=== PATIENT | male | born 1945 | race Caucasian/White ===

== ENCOUNTER 2020-09-17 08:28 | Outpatient (CLI) | payer MEDICARE, SELFPAY ==
--- NOTE | 2020-09-17 08:41 | XR_ITS ---
WS: [id number] Left knee, 3 views, 09/17/2020 Clinical Data: HX OF ACCIDENTAL FALL/L KNEE PAIN/ARTHRITIS Comparison: None. Findings: There is medial joint compartment narrowing. There are posterior patellar spurs. There is a synovial calcification in the posterior mid joint space. The soft tissues are unremarkable. There are no fractures or dislocations. XR/XR knee LT 3V* [id number] Impression: Medial joint compartment narrowing with posterior patellar spurring. Kellgren-Arash Classification: grade 2 (minimal): definite osteophytes and p ossible joint space narrowing
== END 2020-09-17 08:29 | disposition home or self-care (01) ==
PROVIDERS: PCP Nurse Practitioner Family; Visit Provider Nurse Practitioner Family
DX: Z91.81 History of falling (principal); M25.562 Pain in left knee; M19.90 Unspecified osteoarthritis, unspecified site
CPT/HCPCS: 73562

== ENCOUNTER 2020-10-05 09:10 | Outpatient (CLI) | payer MEDICARE, SELFPAY ==
--- NOTE | 2020-10-05 09:25 | MR_ITS ---
WS: [id number] MRI LEFT KNEE NONCONTRAST TECHNIQUE: Axial PD, coronal PD fat sat, coronal PD, sagittal PD, and sagittal PD fat-sat images obta ined. CLINICAL INFORMATION: HX OF ACCIDENTAL FALL, KNEE PAIN, LEFT COMPARISON: None. FINDINGS: Normal anatomic alignment. Hypertrophic patella. Moderate joint space narrowing medial joint compartm ent. Distal quadriceps and patella tendons are intact. Small suprapatellar effusion. Hypertrophic tabatha nges along the joint line. Mild soft tissue edema. Normal ACL. Normal PCL. Diffuse edema within the medial femoral condyle with a small osteochondral de fect. Osteochondral defect measures 4.5 mm. Associated edema with small nondisplaced fracture involvi ng the medial tibial plateau. No significant depression. Lateral meniscus is normal. Complex tear inv olving the posterior horn medial meniscus with edema. Moderate to advanced chondromalacia involving t he medial joint compartment. Advanced chondromalacia patella. Small amount of subchondral edema involving the medial patella facet . Edema within the medial knee compartment and popliteal fossa. Normal lateral collateral ligament. N ormal medial collateral ligament. MR/MR knee LT wo con* [id number] IMPRESSION: 1. Small suprapatellar effusion. 2. Normal ACL and PCL. 3. Diffuse edema involving the medial femoral condyle with osteochondral defec t measuring 4.5 mm. Advanced chondromalacia medial joint compartment. 4. Small amount of edema in the adjacent tibial plateau with a tiny nondisplac ed fracture. No significant depression. 5. Complex tear involving the posterior horn medial meniscus extending to the articular surface. 6. Advanced chondromalacia patella worse involving the medial patella facet. Outbridge grading: grade IV: full-thickness cartilage loss with underlying bone reactive changes
== END 2020-10-05 09:11 | disposition home or self-care (01) ==
PROVIDERS: PCP Clinical Nurse Specialist Adult Health; Visit Provider Nurse Practitioner Family
DX: Z91.81 History of falling (principal); M25.562 Pain in left knee; M25.462 Effusion, left knee; R60.0 Localized edema; S83.232A Complex tear of medial meniscus, current injury, left knee, initial encounter; X58.XXXA Exposure to other specified factors, initial encounter; M22.42 Chondromalacia patellae, left knee
CPT/HCPCS: 73721

== ENCOUNTER → 2020-11-04 10:46 | Outpatient (BNVA) | payer MEDICARE, SELFPAY | PROVIDERS: Referring Provider Clinical Nurse Specialist Adult Health; Visit Provider Specialist | DX: M17.12 Unilateral primary osteoarthritis, left knee (principal); M25.562 Pain in left knee | CPT/HCPCS: 73560; 73565 ==

== ENCOUNTER → 2020-11-17 09:54 | Outpatient (BNVA) | payer MEDICARE, SELFPAY | PROVIDERS: PCP Clinical Nurse Specialist Adult Health; Referring Provider Clinical Nurse Specialist Adult Health; Visit Provider Anesthesiology Pain Medicine | DX: G89.29 Other chronic pain (principal); M48.062 Spinal stenosis, lumbar region with neurogenic claudication; M47.816 Spondylosis without myelopathy or radiculopathy, lumbar region; M54.16 Radiculopathy, lumbar region; Z79.891 Long term (current) use of opiate analgesic; Z87.891 Personal history of nicotine dependence; M54.5 Low back pain; M51.36 Other intervertebral disc degeneration, lumbar region; M47.817 Spondylosis without myelopathy or radiculopathy, lumbosacral region; M48.061 Spinal stenosis, lumbar region without neurogenic claudication; M48.07 Spinal stenosis, lumbosacral region | CPT/HCPCS: 72120; 72148; 99204; 99205 ==

== ENCOUNTER 2020-11-17 14:17 | Outpatient (CLI) | payer MEDICARE, SELFPAY ==
--- NOTE | 2020-11-17 14:30 | XR_ITS ---
WS: [id number] LATERAL LUMBAR SPINE: 3 view. Lateral radiographs are performed in upright neutral, flexion and extension to the patient's toleranc e. HISTORY: M47.816 - Spondylosis without myelopathy or radiculopathy... COMPARISON: None available. Increase in the lumbar lordosis centered at the L4-5 level. Severe disc space narrowing at L4-5 and L 5-S1. L5 anterolisthesis by 9 mm. 2 mm retrolisthesis of L2 and L3. With flexion and extension there is no significant instability identified. Severe facet joint arthritis L4-5 and L5-S1. XR/XR lumbar spine f/e only [id number] IMPRESSION: 1. No lumbar spine instability. 2. Severe disc disease and facet arthritis at L4-5 and L5-S1. 3. Grade 1 anterolisthesis L5.
--- NOTE | 2020-11-17 14:30 | MR_ITS ---
WS: [id number] MRI LUMBAR SPINE NONCONTRAST HISTORY: Spinal stenosis. Back pain radiating into hips and legs for 7 years. COMPARISON: None available. TECHNIQUE: Sagittal and axial multisequence imaging is submitted. Component of stenosis visualized throughout the cervical spine from C3-4 to C6-7. Mild thoracolumbar scoliosis. Increase in lumbar lordosis centered in the lower lumbar vertebral bodies. Marked narrowing of the disc spaces, most significant at L4-5 and L5-S1. L5 anterolisthesis by 8 mm. No marrow edema or fracture. Conus terminates normally at L1-2 disc level. L1-L2: Mild ligamentum flavum hypertrophy. No significant stenosis. L2-L3: Mild annular disc bulging and osteophytic ridging with facet and ligamentum flavum arthritis. Mild bilateral foraminal narrowing. L3-L4: Marked osteophytic ridging and annular disc bulging with moderate ligamentum flavum hypertroph y and facet arthritis. Disc and osteophyte encroachment into the thecal sac. There is disc and osteop hyte contact in the lateral recesses upon the L4 nerve roots. Moderate central and bilateral foramina l stenosis. More severe subarticular and lateral recess stenosis. L4-L5: Diffuse marked osteophytic ridging and severe ligamentum flavum hypertrophy and facet arthriti s. Central disc protrusion. There is severe central stenosis due to combination of disc protrusion an d marked ligamentum flavum and facet arthritis. Severe central and bilateral lateral recess and subar ticular recess stenosis and moderate foraminal stenosis. L5-S1: Unroofing of the disc with severe bilateral ligamentum flavum hypertrophy. Severe central, lat eral recess and subarticular recess narrowing. Mild LEFT foraminal stenosis. Paravertebral soft tissues are negative. MR/MR lumbar spine wo con* [id number] IMPRESSION: 1. Moderate to severe stenoses as described above. Marked increase in the lumb ar lordosis at L4-5. 2. Grade 1 anterolisthesis of L5. 3. Severe central, bilateral lateral recess and subarticular recess stenosis a t L4-5 with moderate foraminal stenosis due to combination of factors as descri bed above. 4. Severe central, lateral recess and subarticular recess stenosis at L5-S1 as described above. 5. Moderate central and bilateral foraminal stenosis at L3-4 with severe bilat eral subarticular lateral recess stenosis.
== END 2020-11-17 14:18 | disposition home or self-care (01) ==
PROVIDERS: PCP Clinical Nurse Specialist Adult Health; Visit Provider Clinical Nurse Specialist Adult Health
DX: M54.5 Low back pain (principal); M47.816 Spondylosis without myelopathy or radiculopathy, lumbar region; M48.062 Spinal stenosis, lumbar region with neurogenic claudication; M51.36 Other intervertebral disc degeneration, lumbar region; M47.817 Spondylosis without myelopathy or radiculopathy, lumbosacral region; M48.061 Spinal stenosis, lumbar region without neurogenic claudication; M48.07 Spinal stenosis, lumbosacral region
CPT/HCPCS: 72120; 72148

== ENCOUNTER → 2020-11-27 13:53 | Outpatient (BNVA) | payer MEDICARE, SELFPAY | PROVIDERS: PCP Clinical Nurse Specialist Adult Health; Visit Provider Anesthesiology Pain Medicine | DX: M54.16 Radiculopathy, lumbar region (principal); Z79.891 Long term (current) use of opiate analgesic | CPT/HCPCS: 62323; J1040; J3490 ==

== ENCOUNTER → 2020-12-17 12:43 | Outpatient (BNVA) | payer MEDICARE, SELFPAY | PROVIDERS: PCP Clinical Nurse Specialist Adult Health; Visit Provider Anesthesiology Pain Medicine | DX: M47.816 Spondylosis without myelopathy or radiculopathy, lumbar region (principal); M54.16 Radiculopathy, lumbar region; M48.061 Spinal stenosis, lumbar region without neurogenic claudication; M79.604 Pain in right leg; M79.605 Pain in left leg; Z79.891 Long term (current) use of opiate analgesic; Z87.891 Personal history of nicotine dependence | CPT/HCPCS: 99214 ==

== ENCOUNTER → 2021-01-27 12:49 | Outpatient (BNVA) | payer MEDICARE, SELFPAY | PROVIDERS: PCP Clinical Nurse Specialist Adult Health; Visit Provider Anesthesiology Pain Medicine | DX: M47.816 Spondylosis without myelopathy or radiculopathy, lumbar region (principal); Z79.891 Long term (current) use of opiate analgesic | CPT/HCPCS: 64493; 64494; 64495; J3490 ==

== ENCOUNTER → 2021-02-15 08:44 | Outpatient (BNVA) | payer MEDICARE, SELFPAY | PROVIDERS: PCP Clinical Nurse Specialist Adult Health; Visit Provider Anesthesiology Pain Medicine | DX: M51.17 Intervertebral disc disorders with radiculopathy, lumbosacral region (principal); M47.816 Spondylosis without myelopathy or radiculopathy, lumbar region; M48.061 Spinal stenosis, lumbar region without neurogenic claudication; Z79.891 Long term (current) use of opiate analgesic; Z87.891 Personal history of nicotine dependence | CPT/HCPCS: 99214 ==

== ENCOUNTER → 2021-03-17 12:31 | Outpatient (BNVA) | payer MEDICARE, SELFPAY | PROVIDERS: PCP Clinical Nurse Specialist Adult Health; Visit Provider Anesthesiology Pain Medicine | DX: M47.816 Spondylosis without myelopathy or radiculopathy, lumbar region (principal); Z79.891 Long term (current) use of opiate analgesic | CPT/HCPCS: 64493; 64494; 64495; J3490 ==

== ENCOUNTER → 2021-03-31 09:46 | Outpatient (BNVA) | payer MEDICARE, SELFPAY | PROVIDERS: PCP Clinical Nurse Specialist Adult Health; Visit Provider Anesthesiology Pain Medicine | DX: M51.17 Intervertebral disc disorders with radiculopathy, lumbosacral region (principal); M48.061 Spinal stenosis, lumbar region without neurogenic claudication; M47.816 Spondylosis without myelopathy or radiculopathy, lumbar region | CPT/HCPCS: 99214 ==

== ENCOUNTER → 2021-04-22 13:01 | Outpatient (BNVA) | payer MEDICARE, SELFPAY | PROVIDERS: PCP Clinical Nurse Specialist Adult Health; Visit Provider Anesthesiology Pain Medicine | DX: M47.816 Spondylosis without myelopathy or radiculopathy, lumbar region (principal); M54.16 Radiculopathy, lumbar region; M48.061 Spinal stenosis, lumbar region without neurogenic claudication; Z79.891 Long term (current) use of opiate analgesic; Z87.891 Personal history of nicotine dependence | CPT/HCPCS: 99214 ==

== ENCOUNTER → 2021-05-19 12:55 | Outpatient (BNVA) | payer MEDICARE, SELFPAY | PROVIDERS: PCP Clinical Nurse Specialist Adult Health; Visit Provider Anesthesiology Pain Medicine | DX: Z87.891 Personal history of nicotine dependence (principal); M47.816 Spondylosis without myelopathy or radiculopathy, lumbar region | CPT/HCPCS: 64635; 64636; J1030 ==

== ENCOUNTER → 2021-06-02 13:22 | Outpatient (BNVA) | payer MEDICARE, SELFPAY | PROVIDERS: PCP Clinical Nurse Specialist Adult Health; Visit Provider Anesthesiology Pain Medicine | DX: Z87.891 Personal history of nicotine dependence (principal); M47.816 Spondylosis without myelopathy or radiculopathy, lumbar region | CPT/HCPCS: 64635; 64636; J1030 ==

== ENCOUNTER → 2021-06-16 10:51 | Outpatient (BNVA) | payer MEDICARE, SELFPAY | PROVIDERS: PCP Clinical Nurse Specialist Adult Health; Visit Provider Anesthesiology Pain Medicine | DX: M47.816 Spondylosis without myelopathy or radiculopathy, lumbar region (principal); M54.16 Radiculopathy, lumbar region; M48.061 Spinal stenosis, lumbar region without neurogenic claudication; M79.604 Pain in right leg; M79.605 Pain in left leg; Z87.891 Personal history of nicotine dependence | CPT/HCPCS: 99214 ==

== ENCOUNTER → 2021-08-03 09:50 | Outpatient (BNVA) | payer MEDICARE, SELFPAY | PROVIDERS: Visit Provider Clinical Nurse Specialist Adult Health | DX: Z00.00 Encounter for general adult medical examination without abnormal findings (principal); E78.5 Hyperlipidemia, unspecified; M48.061 Spinal stenosis, lumbar region without neurogenic claudication; I10 Essential (primary) hypertension; I25.10 Atherosclerotic heart disease of native coronary artery without angina pectoris | CPT/HCPCS: 80053; 80061; 85025 ==

== ENCOUNTER → 2021-09-10 10:02 | Outpatient (BNVA) | payer MEDICARE, SELFPAY | PROVIDERS: Visit Provider Clinical Nurse Specialist Adult Health | DX: Z00.00 Encounter for general adult medical examination without abnormal findings (principal); E78.5 Hyperlipidemia, unspecified; M48.061 Spinal stenosis, lumbar region without neurogenic claudication | CPT/HCPCS: 80053; 80061; 85025 ==

== ENCOUNTER 2021-09-15 16:25 | Observation (INO) | payer MEDICARE, SELFPAY ==
[2021-09-15 16:45] VITALS: BP 116/67; PULSE 88; RESP 20; O2SAT 94
--- NOTE | 2021-09-15 17:42 | XRR_ITS ---
PROCEDURE INFORMATION: Exam: XR Chest Exam date and time: 09/15/2021 5:54 PM Age: 76 years old Clinical indication: Other: Weakness; Prior surgery; Surgery date: 6+ months; Surgery type: Stints; Additional info: AMS TECHNIQUE: Imaging protocol: Radiologic exam of the chest. Views: 1 view. COMPARISON: No relevant prior studies available. FINDINGS: Lungs: Bibasilar scarring. No consolidation. Pleural spaces: No pleural effusion. No pneumothorax. Heart/Mediastinum: No cardiomegaly. Bones/joints: Visualized osseous structures are intact. XR/XR chest 1V portable [id number] IMPRESSION: No acute findings.
--- NOTE | 2021-09-15 17:42 | CTR_ITS ---
PROCEDURE INFORMATION: Exam: CT Head Without Contrast Exam date and time: 09/15/2021 6:22 PM Age: 76 years old Clinical indication: Altered mental status/memory loss; Confusion or disorientation; Patient HX: Confusion with general weakness; Additional info: AMS TECHNIQUE: Imaging protocol: Computed tomography of the head without contrast. Radiation optimization: All CT scans at this facility use at least one of these dose optimization techniques: automated exposure control; mA and/or kV adjustment per patient size (includes targeted exams where dose is matched to clinical indication); or iterative reconstruction. COMPARISON: No relevant prior studies available. RADIATION DOSE METRICS: Total DLP (mGy-cm): 1178.38 FINDINGS: Brain: No hemorrhage. No edema. Moderate diffuse cerebral atrophy. No significant white matter disease. No mass effect. Cerebral ventricles: No ventriculomegaly. Paranasal sinuses: Visualized sinuses are unremarkable. No fluid levels. Mastoid air cells: Visualized mastoid air cells are well aerated. Bones/joints: Unremarkable. No acute fracture. Soft tissues: Unremarkable. CT/CT head wo con* [id number] IMPRESSION: No acute intracranial abnormality.
--- NOTE | 2021-09-15 17:43 | ECG_ITS ---
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 Measurements Intervals [place] Rate: 84 P: DE: QRS: 40 QRSD: 84 T: 63 QT: 353 QTc: 420 Interpretive Statements SUPRAVENTRICULAR RHYTHM No previous ECG available for comparison Electronically Signed On 09-15-2021 18:00:49 CDT by Oliver Mason M.D. [id number]
--- NOTE | 2021-09-15 17:45 | W.ED.WEAKNES ---
HPI - Weakness General: Chief complaint: Weakness Stated complaint: WEAKNESS Time Seen by Provider: 09/15/21 17:16 Source: patient and family Mode of arrival: ambulatory Limitations: no limitations History of Present Illness: Patient convinced spouse to come to the emergency department today because she was concerned about him. He apparently had a fall earlier today. She did not witness the fall but stated that he was attempting to ambulate and she was in the other room and heard a ruckus and came in and found him on the floor. She states he seems to be a little bit more confused than usual. He has generally oriented but seems to ask odd questions of her from time to time. She is not aware of any recent illness. He is not any fevers or chills, nausea, vomiting, diarrhea. She has had a summer cold recent recently. They are have not knowingly been exposed to COVID-19 but neither is immunized. He has a history of spinal stenosis and has had stents placed for coronary artery occlusion but denies any chest pain weakness numbness loss of bowel or bladder control etc. He has chronic lower extremity paresthesias as well. No other contributing findings on his history at this time. He cannot tell me exactly why he fell but denied any associated palpitations syncope etc. MD Complaint: generalized weakness Associated symptoms: Reports no associated symptoms; Denies chest pain, chills, confusion, dysuria, easy bruising, fever(s), headache(s), nausea, syncope or vomiting Review of Systems Const: Denies: fever(s), chills or body aches Eyes: Denies: change in vision ENMT: Denies: odynophagia, change in hearing or nasal congestion Card: Denies: chest pain, palpitations, irregular heart rhythm, lightheadedness or syncope Resp: Denies: dyspnea, productive cough or non-productive cough GI: Denies: abdominal pain, nausea, vomiting or diarrhea : Denies: flank pain, difficulty urinating, dysuria or urinary frequency Musc: Reports: back pain (Chronic low back); Denies: neck pain, extremity pain or extremity swelling Skin/Breast: Denies: rash or erythema Neuro: Denies: headache(s), weakness in extremities, dizziness, vertigo, confusion or Slurred speech present Endo: Denies: polyuria or polydipsia Micheal/Lymph: Denies: easy bruising or easy bleeding PFSH ED PFSH: Medical History (Updated 09/15/21 @ 21:04 by Osmar Up DO) Coronary artery disease Hyperlipidemia Hypertension Spinal stenosis Surgical History (Updated 09/15/21 @ 21:01 by Marvel Adames MD) S/P coronary artery stent placement Family History Other Hypertension Denies family history of CAD (coronary artery disease) Anesthesia complication Bleeding disorder Social History Smoking and tobacco status: former smoker Second hand smoke exposure: No Smoking risk assessment/counseling performed?: No Alcohol intake: never History of recent travel: No Physical Exam Narrative: EXAM NARRATIVE: Patient makes good eye contact. He generally answers questions in a goal-directed fashion. Occasionally he is unsure of his answers. He is cooperative and appears to be in no acute distress. Const: COMMON NORMALS: no acute distress, healthy appearing and alert GENERAL APPEARANCE: cooperative and comfortable NUTRITIONAL APPEARANCE: overweight ORIENTATION/CONSCIOUSNESS: Yes awake, Yes oriented to person and Yes oriented to place HENMT: COMMON NORMALS: normocephalic, atraumatic, Normal nasal mucous membranes and turbinates present and moist oral mucous membranes HEAD & SCALP: normal to inspection, normocephalic and atraumatic FACE & SINUS: normal facial exam NOSE: Normal nasal mucous membranes and turbinates present Eye: COMMON NORMALS: Equal, round and reactive pupils present, EOMs intact bilaterally and conjunctivae normal CONJUNCTIVA: Yes conjunctivae normal PUPIL: Yes Equal, round and reactive pupils present Neck/C-Spine: COMMON NORMALS: full ROM, supple and no JVD CERVICAL SPINE: Yes cervical ROM normal, No Cervical spine tenderness and No step off deformity Chest: COMMONS NORMALS: normal inspection of the chest and normal palpation of entire chest wall Resp: COMMON NORMALS: normal respiratory effort, No retractions, No use of accessory muscles and clear to auscultation bilaterally EFFORT & INSPECTION: Yes able to speak in complete sentences AUSCULTATION: clear to auscultation bilaterally Cardio: COMMON NORMALS: no JVD, regular rate, regular rhythm, No murmurs present (Cardio) and Peripheral pulses 2+ throughout RATE: regular rate RHYTHM: regular rhythm PERIPHERAL PULSES: Peripheral pulses 2+ throughout GI: COMMON NORMALS: Normal to inspection, nondistended, normoactive bowel sounds present, Soft to palpation, non-tender, no masses and no bruits INSPECTION: Yes central obesity PALPATION: Yes Soft to palpation : COMMON NORMALS: Yes no CVA tenderness BLADDER/KIDNEY EXAM: Yes no CVA tenderness Back/Pelvis: COMMON NORMALS: no CVA tenderness, thoracic and lumbar spine normal to inspection, no thoracic nor lumbar tenderness, thoraco-lumbar ROM normal and straight leg raise negative bilaterally Extremity: COMMON NORMALS: normal to inspection, full ROM, capillary refill normal, no joint enlargement, no calf tenderness and no pedal edema Neuro: COMMON NORMALS: moves all extremities and no sensory deficits noted SENSORIUM/ORIENTATION: Yes alert, Yes oriented to person and Yes oriented to place CRANIAL NERVES: Yes CN normal except as noted Psych: COMMON NORMALS: mental status grossly normal and Normal thought process present THOUGHT PROCESS: Normal thought process present Skin: COMMON NORMALS: no rashes or lesions noted, no wounds and turgor normal GENERAL SKIN EXAM: no rashes or lesions noted and turgor normal Course Reevaluation(s): Reevaluation #1: Patient remained stable. No new findings on reevaluation. I discussed current studies, the results and implications with patient and spouse. Recommend observation to repeat serial troponins and also follow response to antibiotic treatment. Time: 21:01 Consultations: Consultation #1: Consulted the manager laundry who agreed to place the patient in observation status. Time: 21:03 Vital Signs: Vital signs: Vital Signs Temperature 98.3 F 09/15/21 20:00 Pulse Rate 84 09/15/21 20:00 Respiratory Rate 20 H 09/15/21 16:45 Blood Pressure 123/73 09/15/21 20:00 Pulse Oximetry 95 09/15/21 20:00 MDM - Weakness Medical Decision Making FallPatient was transported to the emergency department because of concerns about some mild confusion, general weakness and a nonsyncopal earlier today. 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 His work-up in the emergency department revealed evidence of UTI which is a likely contributor to some of his symptoms however he also has an very minimal elevation in his high-sensitivity troponin on 2 occasions. Nonacute EKGs mitigate against ACS at this time but known coronary artery disease with LAD stent I think it is reasonable for us to placement observation for repeat troponins and EKGs and follow his response to therapy. Hospitalist was in agreement. Lab Data I reviewed the patient's lab results. : 09/15/21 18:08 09/15/21 18:08 Radiology Impressions Chest X-Ray 09/15/21 17:42 IMPRESSION: No acute findings. Head CT 09/15/21 17:42 IMPRESSION: No acute intracranial abnormality. Laboratory Results WBC 6.4 10^3/uL (4.0-10.0) 09/15/21 18:08 RBC 3.90 10^6/uL (4.1-5.3) L 09/15/21 18:08 Hgb 12.4 g/dL (11.7-16.6) 09/15/21 18:08 Hct 39.6 % (42.0-52.0) L 09/15/21 18:08 MCV 101.5 fl (80-94) H 09/15/21 18:08 MCH 31.8 pg (28.0-34.0) 09/15/21 18:08 MCHC 31.3 g/dL (30.0-36.0) 09/15/21 18:08 RDW 13.2 % (12.1-15.1) 09/15/21 18:08 Plt Count 176 10^3/cmm (130-400) 09/15/21 18:08 MPV 10.0 fL (7.4-10.4) 09/15/21 18:08 Neut % (Auto) 80.9 % 09/15/21 18:08 Lymph % (Auto) 7.6 % 09/15/21 18:08 Cole % (Auto) 10.6 % 09/15/21 18:08 Eos % (Auto) 0.3 % 09/15/21 18:08 Baso % (Auto) 0.3 % 09/15/21 18:08 Neut # (Auto) 5.18 10^3/uL (1.8-7.7) 09/15/21 18:08 Lymph # (Auto) 0.5 10^3/uL (0.8-4.8) L 09/15/21 18:08 Cole # (Auto) 0.7 10^3/uL (0.2-0.9) 09/15/21 18:08 Eos # (Auto) 0.0 10^3/uL (0.0-0.8) 09/15/21 18:08 Baso # (Auto) 0.0 10^3/uL (0.0-0.1) 09/15/21 18:08 Nucleated RBC % (auto) 0 % 09/15/21 18:08 Nucleated RBCs # 0.0 /100WBC 09/15/21 18:08 Sodium 138 mmol/L (136-145) 09/15/21 18:08 Potassium 4.0 mmol/L (3.5-5.1) 09/15/21 18:08 Chloride 105 mmol/L (98-107) 09/15/21 18:08 Carbon Dioxide 23 mmol/L (22-29) 09/15/21 18:08 Anion Gap 14.0 (5-19) 09/15/21 18:08 BUN 14 mg/dL (8-23) 09/15/21 18:08 Creatinine 0.6 mg/dL (0.7-1.2) L 09/15/21 18:08 GFR Calculation Not Reportable 09/15/21 18:08 Glucose 111 mg/dL (65-115) 09/15/21 18:08 Calculated Osmolality 287 mOsm/kg (285-295) 09/15/21 18:08 Calcium 9.3 mg/dL (8.5-10.5) 09/15/21 18:08 Total Bilirubin 0.2 mg/dL (0.15-1.2) 09/15/21 18:08 AST 38 U/L (0-40) 09/15/21 18:08 ALT 35 U/L (0-41) 09/15/21 18:08 Alkaline Phosphatase 73 IU/L (40-130) 09/15/21 18:08 Troponin T Gen 5 ng/L 23 ng/L (0-15) H 09/15/21 18:08 Troponin T 120 Minute 27.12 ng/L (0-15) H 09/15/21 19:15 Delta Troponin T 4.12 ABS# (0-10) 09/15/21 19:15 Total Protein 6.3 g/dL (6.6-8.7) L 09/15/21 18:08 Albumin 3.9 g/dL (3.5-5.2) 09/15/21 18:08 Globulin 2.4 g/dL (1.3-4.6) 09/15/21 18:08 Urine Color Yellow (Yellow) 09/15/21 18:40 Urine Appearance Cloudy (CLEAR) 09/15/21 18:40 Urine pH 5 (5-7) 09/15/21 18:40 Ur Specific [place] 1.025 (1.005-1.030) 09/15/21 18:40 Urine Protein Neg (Negative) 09/15/21 18:40 Urine Glucose (UA) Norm (Normal) 09/15/21 18:40 Urine Ketones Negative (Negative) 09/15/21 18:40 Urine Blood 3+ (Negative) H 09/15/21 18:40 Urine Nitrate Positive (Negative) H 09/15/21 18:40 Urine Bilirubin Neg (Negative) 09/15/21 18:40 Urine Urobilinogen Norm mg/dL (Negative) 09/15/21 18:40 Ur Leukocyte Esterase 2+ (Negative) H 09/15/21 18:40 Urine RBC 0-4 /hpf (0-2) H 09/15/21 18:40 Urine WBC Too numerous to cnt /hpf (0-5) H 09/15/21 18:40 Ur Squamous Epith Cells 0-4 /hpf (0-5) H 09/15/21 18:40 Amorphous Sediment Not Reportable 09/15/21 18:40 Urine Bacteria 3+ /hpf (NONE) H 09/15/21 18:40 EKG Data EKG 1: I personally reviewed and interpreted this EKG as follows: EKG interpretation time: 18:01 Interpretation: EKG shows a ventricular rate of 84 bpm. P waves are somewhat undiscernible on this tracing. He has a QRS duration of 84 ms and a normal QTc interval. No acute ST-T wave changes noted at this time. No prior tracings available for comparison EKG 2: I personally reviewed and interpreted this EKG as follows: EKG interpretation time: 19:32 Interpretation: Second EKG this visit reveals a ventricular rate of 75 bpm. Again the atrial focus is not clear due to some baseline irritability however he does appear to have stable RR intervals. Normal QRS duration QTC is normal. No acute ST-T wave changes and unchanged from first tracing this visit. Discharge Plan Discharge Patient Disposition: Placed in Observation Clinical Impression: Urinary tract infection, Coronary artery disease, Elevated troponin Condition: Stable Prescriptions: No Action baclofen 5 mg tablet 5 mg PO BID 0RF meloxicam 15 mg tablet 15 mg PO DAILY 0RF atorvastatin 40 mg tablet 40 mg PO DAILY 0RF tamsulosin 0.4 mg capsule 0.4 mg PO DAILY 0RF gabapentin 300 mg capsule 300 mg PO TID Qty: 90 2RF Coding Level of Care Code ED Business Objects Report Developer for Chg Fwd Exam Comprehensive
[2021-09-15] MEDS: sodium chloride 0.9% 500 ML IV (18:11)
[2021-09-15 18:17] LABS: Basophils % 0.3 %; Eosinophils % 0.3 %; Hematocrit 39.6 % (42.0-52.0); Hemoglobin 12.4 g/dL (11.7-16.6); Lymphocytes # 0.5 10^3/uL (0.8-4.8); Lymphocytes % 7.6 %; Mean Corpuscular HGB Conc 31.3 g/dL (30.0-36.0); Mean Corpuscular Hemoglobin 31.8 pg (28.0-34.0); Mean Corpuscular Volume 101.5 fl (80-94); Monocytes # 0.7 10^3/uL (0.2-0.9); Monocytes % 10.6 %; Neutrophils # 5.18 10^3/uL (1.8-7.7); Neutrophils % 80.9 %; Nucleated Red Blood Cells % 0 %; Platelet Count 176 10^3/cmm (130-400); Red Cell Distribution Width 13.2 % (12.1-15.1); White Blood Count 6.4 10^3/uL (4.0-10.0)
[2021-09-15 18:47] LABS: Troponin T (5th) Once 23 ng/L (0-15)
[2021-09-15 18:50] LABS: Alanine Aminotransferase 35 U/L (0-41); Albumin Level 3.9 g/dL (3.5-5.2); Alkaline Phosphatase 73 IU/L (40-130); Aspartate Amino Transferase 38 U/L (0-40); Blood Urea Nitrogen 14 mg/dL (8-23); Calcium 9.3 mg/dL (8.5-10.5); Carbon Dioxide 23 mmol/L (22-29); Chloride 105 mmol/L (98-107); Globulin 2.4 g/dL (1.3-4.6); Glucose 111 mg/dL (65-115); Osmolality Calculated 287 mOsm/kg (285-295); Sodium 138 mmol/L (136-145); Total Bilirubin 0.2 mg/dL (0.15-1.2); Total Protein 6.3 g/dL (6.6-8.7)
[2021-09-15 19:18] LABS: Specific Gravity, Urine 1.025 (1.005-1.030); Urine Appearance Cloudy (CLEAR); Urine Color Yellow (Yellow); pH Urine 5 (5-7)
[2021-09-15 19:19] LABS: Add Urine Microscopic? YES; Bilirubin Urine Neg (Negative); Blood Urine 3+ (Negative); Glucose Urine UA Norm (Normal); Ketones Urine Negative (Negative); Leukocyte Esterase Urine 2+ (Negative); Nitrate Urine Positive (Negative); Protein Urine Neg (Negative); Urobilinogen Urine Norm (Negative)
[2021-09-15 19:20] LABS: Add Urine Culture? Yes; Bacteria Urine 3+ /hpf; RBC Urine 0-4 /hpf (0-2); Squamous Epithelial Cell Urine 0-4 /hpf (0-5); WBC Urine TOO NUMEROUS TO CNT /hpf (0-5)
[2021-09-15] MEDS: cefTRIAXone 2,000 MG in sodium chloride 0.9% (plus) 50 ML 100 MG IV (19:42)
[2021-09-15 20:00] VITALS: BP 123/73; PULSE 84; TEMP 36.8; O2SAT 95
[2021-09-15 20:46] LABS: Troponin 5 2HR 27.12 ng/L (0-15)
[2021-09-15 20:49] LABS: Troponin 5 2HR Delta 4.12 ABS# (0-10)
--- NOTE | 2021-09-15 21:00 | ECG_ITS ---
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 Measurements Intervals [place] Rate: 75 P: -57 [place]: 169 QRS: 39 QRSD: 87 T: 57 QT: 354 QTc: 397 Interpretive Statements ECTOPIC ATRIAL RHYTHM Compared to ECG 09/15/2021 17:59:24 Ectopic atrial rhythm now present Supraventricular rhythm no longer present Electronically Signed On 09-15-2021 19:42:01 CDT by Oliver Mason M.D. [id number]
--- NOTE | 2021-09-15 21:43 | PM.HP ---
Providers/Chief Complaint Admitting Physician: Marvel Adames Chief Complaint: WEAKNESS History of Present Illness Pleasant 76-year-old gentleman with history of spinal stenosis, CAD, status post coronary stenting 2 years ago, on aspirin 81 mg, was brought in for evaluation by his today due to having been more generally weak, more unsteady on his feet, today fell down or slumped down trying to walk with a walker ending up on the floor, and has been acting confused. His reports that he overall has been having some progressive memory difficulties recently, but today has been much more confused than usual. In ER he is noted to be afebrile, without leukocytosis, with UA with numerous WBC, 0-4 RBC, 0.4 squamous pleural cells, nitrate positive. He received Rocephin. Due to the systemic effects after urinary tract infection observation was requested in the hospital. He denies nycturia, or weak stream, but does state that if he gets to urinate he has to make it to the restroom) or otherwise he may not make it in time. Reported with regards to spinal stenosis he had had previously ablation performed. He reports that he has not been having any physical therapy due to having switched insurance still not sure whether it was something that could be affordable to them. Review of Systems Const: Denies: fever(s), chills, body aches or malaise Eyes: Denies: change in vision, eye discomfort or eye redness ENMT: Denies: throat pain, oral sores or ear or mastoid pain Card: Denies: chest pain, edema, pre-syncope or dyspnea on exertion Resp: Denies: dyspnea, productive cough, change in phlegm color or hemoptysis GI: Denies: abdominal pain, nausea, vomiting, diarrhea, constipation, hematochezia or melena : Denies: flank pain, difficulty urinating, urinary frequency or hematuria Musc: Reports: back pain; Denies: joint swelling or joint redness Skin/Breast: Denies: rash or new lesions Neuro: Reports: confusion and other (fall); Denies: headache(s), numbness in extremities, weakness in extremities, dizziness or seizure-like activity Endo: Denies: polyuria or polydipsia Micheal/Lymph: Denies: easy bleeding or tender lymph nodes All/Imm: Denies: urticaria or tongue swelling Medications/Allergies Home Medications Medication Instructions Recorded Confirmed Last Taken Type atorvastatin 40 mg tablet 40 mg PO DAILY 10/12/20 06/16/21 Unknown History meloxicam 15 mg tablet 15 mg PO DAILY 10/12/20 06/16/21 Unknown History tamsulosin 0.4 mg capsule 0.4 mg PO DAILY 10/12/20 06/16/21 Unknown History baclofen 5 mg tablet 5 mg PO BID 11/17/20 06/16/21 Unknown History gabapentin 300 mg capsule 300 mg PO TID #90 cap 06/16/21 06/16/21 Unknown Rx Allergies Allergy/AdvReac Type Severity Reaction Status Date / Time acetaminophen [From Percocet] Allergy Unknown Unknown Unverified 09/15/21 22:05 oxycodone [From Percocet] Allergy Unknown Unknown Unverified 09/15/21 22:05 PFSH Acute PFSH: Medical History (Updated 09/15/21 @ 22:01 by Marvel Adames MD) Coronary artery disease Hyperlipidemia Hypertension Spinal stenosis Surgical History History of ankle surgery Hx of cholecystectomy S/P coronary artery stent placement Family History Other Hypertension Denies family history of CAD (coronary artery disease) Anesthesia complication Bleeding disorder Social History Smoking and tobacco status: former smoker Second hand smoke exposure: No Smoking risk assessment/counseling performed?: No Alcohol intake: never Household members: spouse Marital status: History of recent travel: No Vitals/I&O/Wt Last Vital Signs Temp 98.3 F 09/15/21 20:00 Pulse 84 09/15/21 20:00 Resp 20 H 09/15/21 16:45 BP 123/73 09/15/21 20:00 Pulse Ox 95 09/15/21 20:00 09/15/21 09/15/21 09/15/21 06:59 14:59 22:59 Intake Total 50 / 50 Balance 50 / 50 Physical Exam Const: COMMON NORMALS: alert GENERAL APPEARANCE: cooperative ORIENTATION/CONSCIOUSNESS: Yes awake OTHER: Pleasant. Conversant. Forgetful, frequently looking to to provide answers and history and to complete his thoughts. HENMT: COMMON NORMALS: normocephalic, EAC's normal, Normal external nose present and moist oral mucous membranes HEAD & SCALP: normocephalic NOSE: Normal external nose present EXTERNAL AUDITORY CANAL: EAC's normal Neck/C-Spine: COMMON NORMALS: no meningeal signs Chest: CHEST: Yes Symmetrical chest wall rise Resp: COMMON NORMALS: clear to auscultation bilaterally AUSCULTATION: clear to auscultation bilaterally Cardio: COMMON NORMALS: regular rate, regular rhythm and No murmurs present (Cardio) RATE: regular rate RHYTHM: regular rhythm GI: COMMON NORMALS: Normal to inspection, nondistended, normoactive bowel sounds present, Soft to palpation and non-tender PALPATION: Yes Soft to palpation Extremity: COMMON NORMALS: no pedal edema Neuro: COMMON NORMALS: moves all extremities SENSORIUM/ORIENTATION: Yes alert MENINGEAL SIGNS: Yes no meningeal signs Psych: COMMON NORMALS: mental status grossly normal Skin: COMMON NORMALS: no wounds RASHES: no rashes Data : 09/15/21 18:08 09/15/21 18:08 A&P Assessment and plan (1) Urinary tract infection: Continue Rocephin. He reports that he has history of kidney stones, will assess kidney ultrasound to assess for any hydronephrosis. Does not have signs of sepsis at this time, but UTI complicated with acute encephalopathy, generalized weakness, fall. He otherwise denies symptoms of prostatism, although does appear may have some neurogenic bladder symptoms possibly from his spinal stenosis. Follow urine culture. Status: Acute (2) Acute encephalopathy: Acute metabolic encephalopathy with urinary tract infection. As above. Reassess mental status tomorrow. Consider adjusting baclofen to as needed dosing at discharge. Hold for now. Status: Acute (3) Fall: Has been having difficulty walking secondary to spinal stenosis, but now more generally weak and had a fall/slumped to the floor today trying to walk with a walker. Reports has had ablation for spinal stenosis previously, but the also she has not had any physical therapy due to some changes in insurance. We will request PT, OT assessment. Case management consultation additionally for consideration of post discharge therapy. Check orthostatics. Treat UTI. Status: Acute (4) Decline in verbal memory: Currently acute encephalopathy but a superimposed on more protracted decline in his memory as per both him and his . Discussed consideration, especially if impairment persists after recovery from UTI, with neurology for additional neurocognitive assessment. Check B12, folic acid. TSH. OT, PT Status: Acute (5) Spinal stenosis: PT assessment. Continue conservative management this time. Follow-up with primary provider. Would benefit from PT postdischarge as well. Discussed also with him and his regarding caution with NSAIDs, especially meloxicam, with risks of kidney injury, but also [place], CVA, and other adverse effects. He uses both Nexium and Voltaren. As per discussion he feels he can try to get by with other medications, including Tylenol, discussed other conservative measures including topicals 1/cold packs, etc. Status: Acute (6) Elevated troponin: Discussed with him also mild abnormality of troponin, 23-27. He has not had any chest pain or pressure. Has history of coronary artery disease with stenting 2 years ago had previously been taken off Plavix. Does continue taking 81 mg aspirin. Continue. Complete troponin EKG trend. Monitor for any changes in symptoms and depending on findings consider need for additional work-up/referral. Continue statin. Consider addition of beta-stoney. Status: Acute Plan HTN HLD Attestations Medical Necessity Statement*: Place in observation for additional assessment of management of urinary tract infection complicated with acute encephalopathy, generalized weakness, fall. 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
[2021-09-15 22:00] VITALS: PULSE 73
[2021-09-15 22:34] VITALS: BP 131/68; PULSE 83; RESP 17; TEMP 37.9; O2SAT 92
--- NOTE | 2021-09-15 22:34 | US_ITS ---
WS: [id number] RENAL ULTRASOUND URINARY BLADDER ULTRASOUND HISTORY: UTI, Hx kidney stones, assess for any hydro COMPARISON: None available. TECHNIQUE: 2-D and color Doppler imaging of the kidney submitted. Right kidney: 11.6 cm x 5.9 cm x 7.2 cm. Normal size kidney with no hydronephrosis. No cortical thinning or solid mass. Nonobstructing 7 mm ca lcification lower pole. Parapelvic cyst measures 14 mm in the upper pole. Left kidney: 10.2 cm x 7.9 cm x 5.5 cm. Normal size kidney. There are small parapelvic cyst in the mid kidney with a maximum diameter of 12 m m. Aorta: Normal. Urinary Bladder: Urinary bladder is only moderately distended. Prevoid volume of 89 mL. No significan t change after voiding. Post void volume of 90 mL. US/US renal BI with PV bladder IMPRESSION: 1. No renal obstruction or hydronephrosis. 2. Urinary bladder is only minimally distended. Post void residual is similar to the prevoid volume.
--- NOTE | 2021-09-15 22:49 | PC.NURSE ---
i reported high temp 100.3 to nurse
[2021-09-16] VITALS (8 sets, daily range): BP systolic 103–130; BP diastolic 49–75; PULSE 64–74; RESP 16–18; TEMP 36.7–37.8; O2SAT 90–96
--- NOTE | 2021-09-16 01:00 | ECG_ITS ---
[facility] Test Date: 2021-09-16 Pat Name: Raman Tobar Department: Room: 279 Gender: Male Vp Respiratory: : 1945 Requested By: Osmar Up Order Number: [id number] Sindy MD: Helga Bae M.D. Measurements Intervals [place] Rate: 73 P: 0 PA: 211 QRS: 17 QRSD: 100 T: 51 QT: 356 QTc: 394 Interpretive Statements SINUS RHYTHM WITH SINUS ARRHYTHMIA WITH FIRST DEGREE AV BLOCK Compared to ECG 09/15/2021 19:30:50 First degree AV block now present Ectopic atrial rhythm no longer present Electronically Signed On 09-16-2021 19:26:32 CDT by Helga Bae M.D. [id number]
--- NOTE | 2021-09-16 01:33 | PC.NURSE ---
i reported high temp 100.0 to nurse
[2021-09-16 01:37] LABS: Basophils % 0.3 %; Eosinophils % 0.2 %; Hemoglobin 12.1 g/dL (11.7-16.6); Lymphocytes % 15.5 %; Mean Corpuscular HGB Conc 32.7 g/dL (30.0-36.0); Mean Corpuscular Hemoglobin 31.6 pg (28.0-34.0); Mean Corpuscular Volume 96.6 fl (80-94); Mean Platelet Volume 9.8 fL (7.4-10.4); Monocytes % 15.3 %; Neutrophils # 4.33 10^3/uL (1.8-7.7); Neutrophils % 68.2 %; Nucleated Red Blood Cells % 0 %; Platelet Count 165 10^3/cmm (130-400); Red Blood Count 3.83 10^6/uL (4.1-5.3); Red Cell Distribution Width 13.2 % (12.1-15.1); White Blood Count 6.3 10^3/uL (4.0-10.0)
[2021-09-16 01:53] LABS: Troponin 5 6HR 28.68 ng/L (0-15)
[2021-09-16 02:05] LABS: Troponin 5 6HR Delta 5.68 ng/L (0-12)
[2021-09-16 02:10] LABS: Anion Gap 14.9 (5-19); Blood Urea Nitrogen 14 mg/dL (8-23); Carbon Dioxide 24 mmol/L (22-29); Chloride 100 mmol/L (98-107); Glucose 102 mg/dL (65-115); Osmolality Calculated 281 mOsm/kg (285-295); Potassium 3.9 mmol/L (3.5-5.1); Sodium 135 mmol/L (136-145); Thyroid Stimulating Hormone 0.86 uIU/mL (0.27-4.20); Vitamin B12 428 pg/mL (232-1245)
[2021-09-16 03:56] LABS: Folate Level > 20.0 ng/mL (4.5-32.2)
[2021-09-16] MEDS: aspirin 81 mg EC Tablet PO (08:49)
[2021-09-16] MEDS: gabapentin 300 mg Capsule PO ×3 (08:49→20:31)
[2021-09-16] MEDS: tamsulosin 0.4 mg Capsule PO (08:49)
[2021-09-16] MEDS: atorvastatin 40 mg Tablet PO (08:49)
--- NOTE | 2021-09-16 10:21 | P.PN_ITS ---
Subjective Subjective: Patient was seen and examined this morning, did well with physical therapy,slightly forgetful.Urine culture is growing GNR, Pending identification. Medications: Medication Review Details: Generic Name Dose Route Start Last Admin Trade Name Mile PRN Reason Stop Dose Admin Aspirin 81 mg 09/16/21 09:00 09/16/21 08:49 Aspirin 81 Mg Ec Tablet PO 81 mg DAILY SANTOS Administration Atorvastatin Calci um 40 mg 09/16/21 09:00 09/16/21 08:49 Atorvastatin 40 Mg Tablet PO 40 mg DAILY SANTOS Administration Gabapentin 300 mg 09/16/21 09:00 09/16/21 08:49 Gabapentin 300 M g Capsule PO 300 mg TID SANTOS Administration Tamsulosin HCl 0.4 mg 09/16/21 09:00 09/16/21 08:49 Tamsulosin 0.4 M g Capsule PO 0.4 mg DAILY SANTOS Administration Vitals/I&O/Wt Last Vital Signs Temp 98.1 F 09/16/21 08:00 Pulse 67 09/16/21 08:00 Resp 18 09/16/21 08:00 BP 116/62 09/16/21 08:00 Pulse Ox 90 09/16/21 08:00 09/15/21 09/16/21 09/16/21 22:59 06:59 14:59 Intake Total 50 / 50 Output Total 100 / 100 Balance 50 / 50 -100 / -50 Physical Exam Narrative: Alert,awake,not in acute distress. HENMT: COMMON NORMALS: normocephalic and atraumatic HEAD & SCALP: normocephalic and atraumatic Chest: CHEST: Yes Symmetrical chest wall rise Resp: COMMON NORMALS: clear to auscultation bilaterally EFFORT & INSPECTION: Yes symmetric chest movement AUSCULTATION: clear to auscultation bilaterally Cardio: COMMON NORMALS: regular rate, regular rhythm, S1 normal heart sound present, S2 normal heart sound present, No gallops present (Cardio), No murmurs present (Cardio), No rub (Cardio) and Peripheral pulses 2+ throughout RATE: regular rate RHYTHM: regular rhythm HEART SOUNDS: S1 normal heart sound present and S2 normal heart sound present PERIPHERAL PULSES: Peripheral pulses 2+ throughout GI: COMMON NORMALS: Normal to inspection, nondistended, normoactive bowel sounds present, Soft to palpation, non-tender, No hepatosplenomegaly present and no masses AUSCULTATION: Yes normoactive bowel sounds PALPATION: Yes Soft to palpation and Yes No hepatosplenomegaly present RECTAL EXAM: Yes deferred Extremity: COMMON NORMALS: no clubbing, cyanosis or edema and no pedal edema Data : 09/16/21 01:29 09/16/21 01:29 Micro: Microbiology 09/15/21 18:40 Urine Culture - Preliminary Urine,Clean Catch Gram Negative Rods A&P Assessment and plan (1) Urinary tract infection: Continue Rocephin. He reports that he has history of kidney stones, will assess kidney ultrasound to assess for any hydronephrosis. Does not have signs of sepsis at this time, but UTI complicated with acute encephalopathy, generalized weakness, fall. He otherwise denies symptoms of prostatism, although does appear may have some neurogenic bladder symptoms possibly from his spinal stenosis. Follow urine culture. Status: Acute (2) Acute encephalopathy: Acute metabolic encephalopathy with urinary tract infection. As above. Reassess mental status tomorrow. Consider adjusting baclofen to as needed dosing at discharge. Hold for now. Status: Acute (3) Fall: Has been having difficulty walking secondary to spinal stenosis, but now more generally weak and had a fall/slumped to the floor today trying to walk with a walker. Reports has had ablation for spinal stenosis previously, but the also she has not had any physical therapy due to some changes in insurance. We will request PT, OT assessment. Case management consultation additionally for consideration of post discharge therapy. Check orthostatics. Treat UTI. Status: Acute (4) Decline in verbal memory: Currently acute encephalopathy but a superimposed on more protracted decline in his memory as per both him and his . Discussed consideration, especially if impairment persists after recovery from UTI, with neurology for additional neurocognitive assessment. Check B12, folic acid. TSH. OT, PT Status: Acute (5) Spinal stenosis: PT assessment. Continue conservative management this time. Follow-up with primary provider. Would benefit from PT postdischarge as well. Discussed also with him and his regarding caution with NSAIDs, especially meloxicam, with risks of kidney injury, but also [place], CVA, and other adverse effects. He uses both Nexium and Voltaren. As per discussion he feels he can try to get by with other medications, including Tylenol, discussed other conservative measures including topicals 1/cold packs, etc. Status: Acute (6) Elevated troponin: Discussed with him also mild abnormality of troponin, 23-27. He has not had any chest pain or pressure. Has history of coronary artery disease with stenting 2 years ago had previously been taken off Plavix. Does continue taking 81 mg aspirin. Continue. Complete troponin EKG trend. Monitor for any changes in symptoms and depending on findings consider need for additional work-up/referral. Continue statin. Consider addition of beta-stoney. Status: Acute Plan 76 y o m with PMH of the HTN , CAD S/P PCI 2 Years , spinal stenosis, was admitted with c/o generalized weakness unsteady gait and after experiencing fall at home,as per his lately he has also become more confused. Assesment : Ac Metabolic encephalopathy 2/2 UTI UTI S/P Fall Elevated Troponin Spinal Stenosis CAD S/P PCI HTN HLD Plan : CT head wo con:No acute Intrcranial Pathology US renal BI with PV bladder: No renal obstruction or hydronephrosis.Normal size kidney Urine Culture : GNR Vitamin B12: 428, Folic Acid: >20 TSH: 0.86 Continue rocephin Home Exercise Regimen Continue Aspirin,statin Code Status :Full Code DVT PPX: On Lovenox Attestations Medical Necessity Statement*: Patient needs to be in hospital for the management of AMS,UTI,need for I.V Abxs. 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
--- NOTE | 2021-09-16 11:17 | PC.CHAP ---
Pastoral Care Encounter/Spiritual Assessment Type of Contact [] Declined viticulture teacher visit [] Patient/Family/Request visit [] Outpatient visit [] Follow-up visit [] Physician referral [] Code/Alert [x] Routine visit [] Staff referral [] Actively dying [] Patient sleeping [] Family support [] [] Out of room [] Palliative care [] [] Receiving care in room [] Pre-surgical visit [] Trauma [] Long length of stay [] ICU visit [x] Other: dismissed Relational/Emotional Strength [] Patient feels connected with others/family/visitors/staff [] Distress [] Loneliness/isolation [] Abandonment Spirituality of Patient [] Person of Lucía [] Attends Holiness of their Lucía [] Believes in Prayer [] Reads Bible or Quaker materials [] There are Spiritual issues to be addressed Party Plan Sales Agent Interventions [] Prayer [] Active listening [] Non-anxious presence [] Spiritual/emotional support [] Crisis/trauma care [] Spiritual counseling [] Bereavement support [] Provided bereavement packet [] Provided Bible/devotional materials [] Provided toy/stuffed animal, coloring book to patient or family member [] Provided Communion [] Anointing/Stewart [] Salvation [] Completed spiritual assessment [] Other: Impact on Illness or Injury [] Angry [] Fearful [] Anxious [] Often cries [] Exhaustion [] Unable to work [] Unable to attend evangelical [] Unable to walk/stand [] Unable to read [] Unable to drive [] Unable to eat/drink [] Unable to sleep [] Unable to be with family [] Patient intubated [] Other: Summary dismissed Time spent with patient 5 mins
[2021-09-16] MEDS: enoxaparin 40 mg/0.4 mL Syringe SUBCUT (13:53)
[2021-09-16] MEDS: cefTRIAXone 1,000 MG in sodium chloride 0.9% (plus) 50 ML 100 MG IV (20:32)
[2021-09-17] VITALS: BP 120/58; PULSE 62; RESP 17; TEMP 37.7; O2SAT 94
[2021-09-17 04:00] VITALS: BP 128/69; PULSE 71; RESP 18; TEMP 37.7; O2SAT 96
[2021-09-17 06:00] VITALS: PULSE 69
[2021-09-17 07:19] LABS: Basophils % 0.4 %; Hematocrit 41.9 % (42.0-52.0); Hemoglobin 13.6 g/dL (11.7-16.6); Lymphocytes # 0.8 10^3/uL (0.8-4.8); Lymphocytes % 14.6 %; Mean Corpuscular HGB Conc 32.5 g/dL (30.0-36.0); Mean Corpuscular Hemoglobin 31.9 pg (28.0-34.0); Mean Corpuscular Volume 98.1 fl (80-94); Mean Platelet Volume 9.8 fL (7.4-10.4); Monocytes # 0.5 10^3/uL (0.2-0.9); Neutrophils # 3.91 10^3/uL (1.8-7.7); Neutrophils % 74.8 %; Nucleated Red Blood Cells % 0 %; Platelet Count 167 10^3/cmm (130-400); Red Blood Count 4.27 10^6/uL (4.1-5.3); Red Cell Distribution Width 13.2 % (12.1-15.1); White Blood Count 5.2 10^3/uL (4.0-10.0)
[2021-09-17 07:42] LABS: Anion Gap 13.5 (5-19); Blood Urea Nitrogen 12 mg/dL (8-23); Carbon Dioxide 28 mmol/L (22-29); Chloride 100 mmol/L (98-107); Glucose 152 mg/dL (65-115); Osmolality Calculated 287 mOsm/kg (285-295); Potassium 4.5 mmol/L (3.5-5.1); Sodium 137 mmol/L (136-145)
[2021-09-17] MEDS: aspirin 81 mg EC Tablet PO (07:57)
[2021-09-17] MEDS: gabapentin 300 mg Capsule PO (07:57)
[2021-09-17] MEDS: atorvastatin 40 mg Tablet PO (07:57)
[2021-09-17] MEDS: tamsulosin 0.4 mg Capsule PO (07:57)
[2021-09-17 08:00] VITALS: BP 130/64; PULSE 73; RESP 18; TEMP 37.3; O2SAT 90
--- NOTE | 2021-09-17 08:55 | P.DS_ITS ---
Discharge Providers Date of Admission: 09/15/21 21:05 Date of Discharge: September 17, 2021 Attending Provider at Admission: Marvel Adames Attending Provider at Discharge: Dave Edwards MD Diagnoses at Discharge Discharge Diagnosis (1) Urinary tract infection: Status: Acute (2) Acute encephalopathy: Status: Acute (3) Fall: Status: Acute (4) Decline in verbal memory: Status: Acute (5) Spinal stenosis: Status: Acute (6) Elevated troponin: Status: Acute Reason for Visit Reason for Visit: WEAKNESS Hospital Course Hospital Course 76 y o m with PMH of the HTN , CAD S/P PCI 2 Years , spinal stenosis, was admitted with c/o generalized weakness unsteady gait and after experiencing fall at home,as per his lately he has also become more confused.He was admitted for the management of Ac Metabolic encephalopathy 2/2 UTI, urine culture grew GNR pending idetification, he was kept on I.V abxs and is being discharged on po levofloxacion for additional 5 days.At the time of discharge his encephalopathy has resolved.Patient also worked with physical therapy well and has been given home exercise program.He also qualified for 2 ls oxygen possibly 2/2 to underlying COPD likely 2/2 to his previous smoking history. Overall patient has responded well to above medical management and is being discharge in stable condition to home,he will continue to follow with his PCP as outpatient. Physical Exam Narrative: Alert,awake,not in acute distress. Const: COMMON NORMALS: patient oriented x3 HENMT: COMMON NORMALS: normocephalic and atraumatic HEAD & SCALP: normocephalic and atraumatic Chest: CHEST: Yes Symmetrical chest wall rise Resp: COMMON NORMALS: clear to auscultation bilaterally EFFORT & INSPECTION: Yes symmetric chest movement AUSCULTATION: clear to auscultation bilaterally Cardio: COMMON NORMALS: regular rate, regular rhythm, S1 normal heart sound present, S2 normal heart sound present, No gallops present (Cardio), No murmurs present (Cardio), No rub (Cardio) and Peripheral pulses 2+ throughout RATE: regular rate RHYTHM: regular rhythm HEART SOUNDS: S1 normal heart sound present and S2 normal heart sound present PERIPHERAL PULSES: Peripheral pulses 2+ throughout GI: COMMON NORMALS: Normal to inspection, nondistended, normoactive bowel sounds present, Soft to palpation, non-tender, No hepatosplenomegaly present and no masses AUSCULTATION: Yes normoactive bowel sounds PALPATION: Yes Soft to palpation and Yes No hepatosplenomegaly present RECTAL EXAM: Yes deferred Extremity: COMMON NORMALS: no clubbing, cyanosis or edema and no pedal edema Neuro: COMMON NORMALS: patient oriented x3 Discharge Data Studies Completed and Pending Completed Studies During Hospitalization Category Date Time Status CT head wo con* [id number] Urgent Cat Scan 09/15/21 17:42 Completed XR chest 1V portable [id number] Urgent Exams 09/15/21 17:42 Completed US kidney bilateral with bladder [US renal BI with PV Ultrasound 09/15/21 22:34 Completed bladder] Urgent Pending at discharge Category Date Time Status Basic Metabolic Panel AM LABS Lab 09/18/21 04:00 Ordered Complete Blood Count w/Auto AM LABS Lab 09/18/21 04:00 Ordered Urine Culture Stat Lab 09/15/21 18:40 Results Radiology Impressions Chest X-Ray 09/15/21 17:42 IMPRESSION: No acute findings. Head CT 09/15/21 17:42 IMPRESSION: No acute intracranial abnormality. Renal Ultrasound 09/15/21 22:34 IMPRESSION: 1. No renal obstruction or hydronephrosis. 2. Urinary bladder is only minimally distended. Post void residual is similar to the prevoid volume. Laboratory Results WBC 5.2 10^3/uL (4.0-10.0) 09/17/21 07:08 RBC 4.27 10^6/uL (4.1-5.3) 09/17/21 07:08 Hgb 13.6 g/dL (11.7-16.6) 09/17/21 07:08 Hct 41.9 % (42.0-52.0) L 09/17/21 07:08 MCV 98.1 fl (80-94) H 09/17/21 07:08 MCH 31.9 pg (28.0-34.0) 09/17/21 07:08 MCHC 32.5 g/dL (30.0-36.0) 09/17/21 07:08 RDW 13.2 % (12.1-15.1) 09/17/21 07:08 Plt Count 167 10^3/cmm (130-400) 09/17/21 07:08 MPV 9.8 fL (7.4-10.4) 09/17/21 07:08 Neut % (Auto) 74.8 % 09/17/21 07:08 Lymph % (Auto) 14.6 % 09/17/21 07:08 Johnson % (Auto) 10.0 % 09/17/21 07:08 Eos % (Auto) 0.0 % 09/17/21 07:08 Baso % (Auto) 0.4 % 09/17/21 07:08 Neut # (Auto) 3.91 10^3/uL (1.8-7.7) 09/17/21 07:08 Lymph # (Auto) 0.8 10^3/uL (0.8-4.8) 09/17/21 07:08 Johnson # (Auto) 0.5 10^3/uL (0.2-0.9) 09/17/21 07:08 Eos # (Auto) 0.0 10^3/uL (0.0-0.8) 09/17/21 07:08 Baso # (Auto) 0.0 10^3/uL (0.0-0.1) 09/17/21 07:08 Nucleated RBC % (auto) 0 % 09/17/21 07:08 Nucleated RBCs # 0.0 /100WBC 09/17/21 07:08 Sodium 137 mmol/L (136-145) 09/17/21 07:08 Potassium 4.5 mmol/L (3.5-5.1) 09/17/21 07:08 Chloride 100 mmol/L (98-107) 09/17/21 07:08 Carbon Dioxide 28 mmol/L (22-29) 09/17/21 07:08 Anion Gap 13.5 (5-19) 09/17/21 07:08 BUN 12 mg/dL (8-23) 09/17/21 07:08 Creatinine 0.6 mg/dL (0.7-1.2) L 09/17/21 07:08 GFR Calculation Not Reportable 09/17/21 07:08 Glucose 152 mg/dL (65-115) H 09/17/21 07:08 Calculated Osmolality 287 mOsm/kg (285-295) 09/17/21 07:08 Calcium 9.0 mg/dL (8.5-10.5) 09/17/21 07:08 Total Bilirubin 0.2 mg/dL (0.15-1.2) 09/15/21 18:08 AST 38 U/L (0-40) 09/15/21 18:08 ALT 35 U/L (0-41) 09/15/21 18:08 Alkaline Phosphatase 73 IU/L (40-130) 09/15/21 18:08 Troponin T Gen 5 ng/L 23 ng/L (0-15) H 09/15/21 18:08 Troponin T 120 Minute 27.12 ng/L (0-15) H 09/15/21 19:15 Delta Troponin T 4.12 ABS# (0-10) 09/15/21 19:15 Troponin T Hi Sens 6Hr 28.68 ng/L (0-15) H 09/16/21 01:29 Troponin T Hi Sens 6Hr Delta 5.68 ng/L (0-12) 09/16/21 01:29 Total Protein 6.3 g/dL (6.6-8.7) L 09/15/21 18:08 Albumin 3.9 g/dL (3.5-5.2) 09/15/21 18:08 Globulin 2.4 g/dL (1.3-4.6) 09/15/21 18:08 Vitamin B12 428 pg/mL (232-1245) 09/16/21 01:29 Folate > 20.0 ng/mL (4.5-32.2) 09/16/21 01:29 TSH 0.86 uIU/mL (0.27-4.20) 09/16/21 01:29 Urine Color Yellow (Yellow) 09/15/21 18:40 Urine Appearance Cloudy (CLEAR) 09/15/21 18:40 Urine pH 5 (5-7) 09/15/21 18:40 Ur Specific [place] 1.025 (1.005-1.030) 09/15/21 18:40 Urine Protein Neg (Negative) 09/15/21 18:40 Urine Glucose (UA) Norm (Normal) 09/15/21 18:40 Urine Ketones Negative (Negative) 09/15/21 18:40 Urine Blood 3+ (Negative) H 09/15/21 18:40 Urine Nitrate Positive (Negative) H 09/15/21 18:40 Urine Bilirubin Neg (Negative) 09/15/21 18:40 Urine Urobilinogen Norm mg/dL (Negative) 09/15/21 18:40 Ur Leukocyte Esterase 2+ (Negative) H 09/15/21 18:40 Urine RBC 0-4 /hpf (0-2) H 09/15/21 18:40 Urine WBC Too numerous to cnt /hpf (0-5) H 09/15/21 18:40 Ur Squamous Epith Cells 0-4 /hpf (0-5) H 09/15/21 18:40 Amorphous Sediment Not Reportable 09/15/21 18:40 Urine Bacteria 3+ /hpf (NONE) H 09/15/21 18:40 Vitals Last Vital Signs Temp 99.1 F 09/17/21 08:00 Pulse 73 09/17/21 08:00 Resp 18 09/17/21 08:00 BP 130/64 09/17/21 08:00 Pulse Ox 90 09/17/21 08:00 Discharge Plan Discharge Patient Disposition: Home Condition: Stable Prescriptions: New levofloxacin 500 mg tablet 500 mg PO DAILY 5 Days Qty: 5 0RF Continued baclofen 5 mg tablet 5 mg PO BID 0RF meloxicam 15 mg tablet 15 mg PO DAILY 0RF atorvastatin 40 mg tablet 40 mg PO DAILY 0RF tamsulosin 0.4 mg capsule 0.4 mg PO DAILY 0RF gabapentin 300 mg capsule 300 mg PO TID Qty: 90 2RF Discharge Orders: Discharge Order (Routine); Ordered 09/17/21 Ordered By: Dave Edwards Other Ambulatory Orders: DME: Oxygen (Order) Location: None Selected Ordered By: Dave Edwards Referrals: Unruly Ferreira ORE TESTER [Nurse Practitioner] - 09/24/21 9:30 am Discharge Diet: Regular Discharge Activity: Resume usual activity Patient Instructions: Levofloxacin (By mouth), Urinary Tract Infection in Men (DC), Opioid Safety Discharge Attestations Time Spent in Discharge Care*: less than 30 min Quality Metrics Clinical Quality Measures [ No reported AMI, CVA or VTE this stay] Coding Level of Care Code Acute Chg FW DC note Diagnoses Urinary tract infection N39.0 Acute encephalopathy G93.40 Fall W19.XXXA Decline in verbal memory R41.3 Spinal stenosis M48.00 Elevated troponin R77.8
[2021-09-17 11:07] VITALS: O2SAT 86
[2021-09-17 11:58] VITALS: BP 141/78; PULSE 72; RESP 17; TEMP 36.8; O2SAT 95
== END 2021-09-17 14:10 | disposition home or self-care (01) ==
LOC: ER 21:04 → MEDSURG 21:26
PROVIDERS: Admitting Provider Internal Medicine; Emergency Provider Emergency Medicine; Visit Provider Internal Medicine
DX: N39.0 Urinary tract infection, site not specified (principal); G93.40 Encephalopathy, unspecified; Z91.81 History of falling; R41.3 Other amnesia; M48.00 Spinal stenosis, site unspecified; R77.8 Other specified abnormalities of plasma proteins; I10 Essential (primary) hypertension; I25.10 Atherosclerotic heart disease of native coronary artery without angina pectoris; E78.5 Hyperlipidemia, unspecified; I44.0 Atrioventricular block, first degree; Z79.82 Long term (current) use of aspirin; Z87.891 Personal history of nicotine dependence; Z95.5 Presence of coronary angioplasty implant and graft
CPT/HCPCS: 36415; 70450; 71045; 76770; 76857; 80048; 80053; 81001; 82607; 82746; 84443; 84484; 85025; 87077; 87086; 87186; 93005; 96365; 97116; 97161; 97165; 99285; G0378; J0696; J1650; J7040

== ENCOUNTER → 2023-03-14 10:49 | Outpatient (BNVA) | payer MEDICARE, SELFPAY | PROVIDERS: PCP Family Medicine Adult Medicine; Visit Provider Family Medicine Adult Medicine | DX: I10 Essential (primary) hypertension (principal); N40.1 Benign prostatic hyperplasia with lower urinary tract symptoms; R35.1 Nocturia; I25.10 Atherosclerotic heart disease of native coronary artery without angina pectoris; R73.09 Other abnormal glucose | CPT/HCPCS: 80053; 80061; 83036; 85025; G0103 ==

== ENCOUNTER → 2023-05-02 09:14 | Outpatient (BNVA) | payer MEDICARE, SELFPAY | PROVIDERS: PCP Family Medicine Adult Medicine; Visit Provider Psychiatry & Neurology Neurology | DX: R41.3 Other amnesia (principal); I25.10 Atherosclerotic heart disease of native coronary artery without angina pectoris; E55.9 Vitamin D deficiency, unspecified; R42 Dizziness and giddiness; I10 Essential (primary) hypertension | CPT/HCPCS: 36415; 82306; 82542; 99203 ==

== ENCOUNTER 2023-05-19 11:30 | Outpatient (CLI) | payer MEDICARE, SELFPAY ==
--- NOTE | 2023-05-19 11:45 | USCV_ITS ---
Raman Tobar Age: 78 Gender: M : 1945 Exam Date: 05/19/2023 12:45 Ordering Phys: Kodi Urias MD Technologist: JOSE ARMANDO [place] [facility] [place]: DIZZINESS Risk Factors: Previous Vascular Surgery: Right Brachial BP: / Left Brachial BP: / Right Left Velocity (cm/s) Spectral Plaque Velocity (cm/s) Spectral Plaque Syst/Diast Broadening Syst/Diast Broadening 84.70/ 21.90 Prox CCA 118.70/ 16.90 71.50/ 18.60 Mid CCA 71.80 / 19.40 68.50/ 19.30 Distal CCA 73.00 / 18.40 75.20/ 25.40 Prox ICA 71.70 / 24.50 85.60/ 27.00 Mid ICA 69.40 / 18.90 69.10/ 22.20 Distal ICA 66.00 / 22.20 77.60 ECA 68.10 1.20 ICA/CCA 1.00 Antegrade Vertebral Antegrade 40.20/ 10.00 cm/s 55.10/ 17.60 cm/s Tri Subclavian Tri 61.10 90.70 CONCLUSIONS Right ICA stenosis <50%. Mild atheromatous plaque right carotid bulb/ICA. Left ICA stenosis <50%. Moderate atheromatous plaque left carotid bulb/ICA. Normal antegrade Doppler flow noted in the right vertebral artery. Normal antegrade Doppler flow noted in the left vertebral artery. Peter Moore MD (Electronically Signed) Final Date: 19 May 2023 14:39 S
--- NOTE | 2023-05-19 12:15 | MR_ITS ---
WS: [id number] MRI BRAIN WITH AND WITHOUT CONTRAST HISTORY: R41.3 - Other amnesia COMPARISON: CT head 09/15/2021 TECHNIQUE: Multiplanar imaging performed through the brain with MultiHance 20 ml's IV. No acute infarcts are seen. Guardado-white matter differentiation is well preserved. Numerous T2 and FLAI R signal hyperintensities scattered throughout the brain. No large territory infarct. There is mild b ilateral symmetric volume loss. Mild bilateral hippocampal atrophy. No susceptibility artifacts or prior lacunar infarcts. Ventricles and extra-axial spaces are prominent on the basis of atrophy. Clivus and pituitary gland are normal. TM joint osteoarthritis, LEFT greater than RIGHT. Visualized posterior fossa and brainstem are also normal. Postcontrast images are negative for masses or vascular malformations. Dural venous sinuses are normal. Paranasal sinuses: Well aerated with no significant disease. Mastoid air cells: Normal. Calvarium and scalp: Normal. IMPRESSION: 1. No acute infarct or enhancing mass. 2. Mild bilateral symmetric volume loss with mild small vessel ischemic disease. 3. Mild bilateral hippocampal atrophy. 4. TM joint osteoarthritis, LEFT greater than RIGHT.
[2023-05-19] MEDS: gadobenate dimeglumine 20 mL vial IV (12:17)
== END 2023-05-19 11:31 | disposition home or self-care (01) ==
PROVIDERS: PCP Family Medicine Adult Medicine; Visit Provider Psychiatry & Neurology Neurology
DX: R41.3 Other amnesia (principal); R42 Dizziness and giddiness; I65.23 Occlusion and stenosis of bilateral carotid arteries; I25.10 Atherosclerotic heart disease of native coronary artery without angina pectoris; I67.89 Other cerebrovascular disease; M19.09 Primary osteoarthritis, other specified site
CPT/HCPCS: 70553; 93880; A9577

== ENCOUNTER → 2023-10-26 07:52 | Outpatient (BNVA) | payer MEDICARE, SELFPAY | PROVIDERS: PCP Family Medicine Adult Medicine; Visit Provider Orthopaedic Surgery | DX: M48.062 Spinal stenosis, lumbar region with neurogenic claudication (principal) | CPT/HCPCS: 72110; 99204 ==

== ENCOUNTER → 2023-10-30 08:26 | Outpatient (BNVA) | payer MEDICARE, SELFPAY | PROVIDERS: PCP Family Medicine Adult Medicine; Visit Provider Podiatrist Foot & Ankle Surgery | DX: M21.371 Foot drop, right foot (principal) | CPT/HCPCS: 99203 ==

== ENCOUNTER 2023-12-04 09:19 | Outpatient (CLI) | payer MEDICARE, SELFPAY ==
--- NOTE | 2023-12-04 09:30 | MR_ITS ---
WS: [id number] MRI LUMBAR SPINE WITH AND WITHOUT CONTRAST HISTORY: Back Pain COMPARISON: 11/17/2020 TECHNIQUE: Sagittal and axial multisequence imaging is submitted. MultiHance 20 mL. Advanced degenerative disc disease and scoliosis in the cervical, thoracic and lumbar spines. S-shaped curvature thoracic and lumbar spine. L5 anterolisthesis by 6.6 mm. Disc spaces are narrowed and desiccated within the lumbar spine. No fractures or marrow edema. Conus terminates normally at L1-2 disc level. L1-L2: Diffuse annular disc bulging with ligamentum flavum and facet arthritis. No high-grade stenosi s. L2-L3: Diffuse annular disc bulging, osteophytic ridging with ligamentum flavum and facet arthritis. There is disc encroachment in the subarticular recesses and traversing L3 nerve roots. Mild bilateral subarticular recess and foraminal stenosis. L3-L4: Slight retrolisthesis of L3. Marked annular disc bulging with ligamentum flavum and facet arth ritis. Severe central, bilateral subarticular recess and foraminal stenosis. Moderate facet arthritis . Progression of stenosis send degenerative changes. L4-L5: Marked annular disc bulging with severe ligamentum flavum and facet arthritis. Fluid in each t he facet joint. Severe central, bilateral subarticular recess and foraminal stenosis. Similar to the prior study. L5-S1: Diffuse marked annular disc bulging with ligamentum flavum and facet arthritis. Fluid in each facet joint. Severe central, bilateral subarticular recess and LEFT foraminal stenosis. Mild RIGHT fo raminal stenosis. No discitis or osteomyelitis. No mass. MR/MR lumbar spine wo/w con [id number] IMPRESSION: 1. Severe advanced degenerative changes throughout the spine. 2. Grade 1 anterolisthesis of L5 by 6.6 mm. 3. Multilevel advanced degenerative disc disease with stenoses and facet arthr opathy. 4. L3-4: Severe central, bilateral subarticular recess and foraminal stenosis with mild progression since 2020. 5. L4-5: Severe central, bilateral subarticular recess and foraminal stenosis. 6. L5-S1: Severe central with bilateral subarticular recess and LEFT foraminal stenosis. Mild RIGHT foraminal stenosis. 7. L2-3: Mild disc encroachment upon the subarticular recesses resulting in mi ld bilateral subarticular recess and foraminal stenosis. 8. No discitis or osteomyelitis.
[2023-12-04] MEDS: gadobenate dimeglumine 20 mL vial IV (10:07)
== END 2023-12-04 09:20 | disposition home or self-care (01) ==
LOC: RAD 09:19
PROVIDERS: PCP Family Medicine Adult Medicine; Visit Provider Orthopaedic Surgery
DX: M47.896 Other spondylosis, lumbar region (principal); M51.36 Other intervertebral disc degeneration, lumbar region; M51.34 Other intervertebral disc degeneration, thoracic region; M50.30 Other cervical disc degeneration, unspecified cervical region; M25.78 Osteophyte, vertebrae; M51.37 Other intervertebral disc degeneration, lumbosacral region
CPT/HCPCS: 72158

== ENCOUNTER → 2024-01-09 09:50 | Outpatient (BNVA) | payer MEDICARE, SELFPAY | PROVIDERS: PCP Family Medicine Adult Medicine; Visit Provider Orthopaedic Surgery | DX: Z01.818 Encounter for other preprocedural examination (principal); R73.03 Prediabetes; M48.062 Spinal stenosis, lumbar region with neurogenic claudication | CPT/HCPCS: 36415; 80053; 81001; 83036; 85025; 99214 ==

== ENCOUNTER → 2024-01-17 09:53 | Outpatient (BNVA) | payer MEDICARE, SELFPAY | PROVIDERS: PCP Family Medicine Adult Medicine; Visit Provider Family Medicine | DX: Z01.818 Encounter for other preprocedural examination (principal) | CPT/HCPCS: 81003 ==

== ENCOUNTER → 2024-04-04 15:49 | Outpatient (BNVA) | payer MEDICARE, SELFPAY | PROVIDERS: PCP Family Medicine; Visit Provider Family Medicine | DX: M48.061 Spinal stenosis, lumbar region without neurogenic claudication (principal); M54.9 Dorsalgia, unspecified; G89.29 Other chronic pain; R41.3 Other amnesia; G30.9 Alzheimer's disease, unspecified; F02.811 Dementia in other diseases classified elsewhere, unspecified severity, with agitation; F02.80 Dementia in other diseases classified elsewhere, unspecified severity, without behavioral disturbance, psychotic disturbance, mood disturbance, and anxiety; M17.12 Unilateral primary osteoarthritis, left knee; M54.16 Radiculopathy, lumbar region; R73.03 Prediabetes; I25.10 Atherosclerotic heart disease of native coronary artery without angina pectoris; I10 Essential (primary) hypertension; E66.9 Obesity, unspecified; Z02.89 Encounter for other administrative examinations; N40.1 Benign prostatic hyperplasia with lower urinary tract symptoms; I65.23 Occlusion and stenosis of bilateral carotid arteries; Z76.89 Persons encountering health services in other specified circumstances | CPT/HCPCS: 82607; 83036; 84439; 84443 ==

== ENCOUNTER 2024-04-10 13:48 | Inpatient (IN) | payer MEDICARE, SELFPAY ==
[2024-04-10] VITALS (17 sets, daily range): BP systolic 106–138; BP diastolic 66–85; PULSE 66–92; RESP 16–20; TEMP 36.3–36.8; O2SAT 90–99; BMI 31.1
[2024-04-10] MEDS: sodium chloride 0.9% 1,000 ML 30 ML IV (08:12)
--- NOTE | 2024-04-10 08:26 | P.ANESASSM_ITS ---
Pre-Anesthetic Assessment Height/Weight: Height 1.83 m Weight 104.326 kg Temp Pulse Resp BP Pulse Ox O2 Del Method 97.4 F L 66 18 132/82 93 Room Air 04/10/24 07:50 04/10/24 07:50 04/10/24 07:50 04/10/24 07:50 04/10/24 07:50 04/10/24 07:56 Preop Diagnosis: Lumbar stenosis with neurogenic claudication Operation Date: 04/10/24 09:10 Proposed Procedures p Spinal Fusion PSF(Not Applicable) - Hasmukh Russell DO s Lumbopelvic Fixation(Not Applicable) - DO yogesh Epperson Lumbar Spine Decompression Lumbar Decompression(Not Applicable) - Hasmukh Russell DO Familial anesthetic complications: None Was Beta Nas taken within 24 hours: N/A Was Clonidine taken within 24 hours: N/A Last intake: Intake Last Liquid Date 04/09/24 Last Liquid Time 19:00 Last Solid Date 04/09/24 Last Solid Time 19:00 Social No alcohol and No tobacco Exam alert, oriented x 3, clear to auscultation bilaterally and regular rate & rhythm Airway Mallampati: Class III Dentition: chipped CV/HEM Coronary Artery Disease (2 stents > 1 year) Anesthetic Plan ASA status: 3 Anesthesia: General Risk of > 500 ml blood loss (7ml/kg in children): No Medications/Allergies Home Medications Medication Instructions Recorded Confirmed Last Taken Type atorvastatin 40 mg tablet 40 mg PO DAILY 10/12/20 04/09/24 04/09/24 History aspirin 81 mg tablet,delayed 81 mg PO DAILY 09/27/21 04/09/24 04/02/24 History release diclofenac sodium 1 % topical gel 2 g topical QID 09/27/21 04/09/24 04/09/24 History cholecalciferol (vitamin D3) 25 25 mcg PO DAILY 07/20/22 04/09/24 Unknown History mcg (1,000 unit) tablet coenzyme [id number] E 100 mg-100 1 cap PO DAILY 07/20/22 04/09/24 Unknown History unit capsule [id number] 300 mcg-K 60 1 tab PO DAILY 07/20/22 04/09/24 Unknown History mcg-lycop 600 mcg-lutein 300 mcg tablet (Centrum Silver Ultra Men's) tamsulosin 0.4 mg capsule 0.4 mg PO DAILY BPH #90 caps 08/15/23 04/09/24 04/09/24 Rx AFO brace #1 ea 10/30/23 04/04/24 Unknown Rx acetaminophen 500 mg tablet 500 mg PO Q6H PRN Pain 01/17/24 04/09/24 04/09/24 History Bone Growth Stimulator #1 ea 03/28/24 04/04/24 Unknown Rx celecoxib 200 mg capsule 200 mg PO BID PRN pain #60 caps 04/04/24 04/09/24 Unknown Rx donepezil 5 mg tablet 5 mg PO DAILY #90 tabs 04/04/24 04/09/24 Unknown Rx tramadol 50 mg tablet 50 mg PO BID PRN pain, moderate 30 04/04/24 04/09/24 04/06/24 Rx days #60 tabs gabapentin 300 mg capsule 300 mg PO TID PRN chronic pain 04/09/24 04/09/24 04/06/24 History Allergies Allergy/AdvReac Type Severity Reaction Status Date / Time No Known Allergies Allergy Verified 04/10/24 07:50 Current Medications Generic Name Dose Route Start Last Admin Trade Name Freq PRN Reason Stop Dose Admin Sodium Chloride 1,000 mls @ 30 mls/hr 04/10/24 07:45 04/10/24 08:12 Sodium Chloride 0.9% IV 04/11/24 07:44 30 mls/hr .Q24H SANTOS Administration PFSH Anesthesia Medical History Atherosclerosis of both carotid arteries moderate Pain management contract signed 04.04.24 Encounter for chronic pain management tramadol Alzheimer dementia with agitation MRI 2023 shows hippocampal atrophy Chronic back pain greater than 3 months duration Pre-diabetes 03/14/2023 hemoglobin A1c 5.9 Memory loss or impairment BPH loc w urin obs/LUTS Degenerative lumbar spinal stenosis Obesity (BMI 30-39.9) Decline in verbal memory Facet arthropathy, lumbar Spinal stenosis Hyperlipidemia Hypertension Coronary artery disease hx of 2 stents Surgical History History of ankle surgery left Hx of cholecystectomy S/P coronary artery stent placement X 2 Family History Other Hypertension Denies family history of CAD (coronary artery disease) Anesthesia complication Bleeding disorder Social History Smoking and tobacco/nicotine status: former use of tobacco/nicotine Quit status (tobacco/nicotine): has quit using Year quit tobacco: 2005 Second hand smoke exposure: No Alcohol intake: never Substance/Drug Use: never Household members: spouse Marital status: Number of children: 3 Highest education level completed: High School Graduate Current occupational status: retired Previous occupational history: [employer] dept in [place] Data Anesthesia 04/10/24 08:05 04/10/24 08:05 Cardiac Studies: 2 No Data to Display
[2024-04-10 08:27] LABS: Basophils % 0.5 %; Eosinophils # 0.3 10^3/uL (0.0-0.8); Eosinophils % 4.3 %; Hematocrit 44.8 % (37-53); Lymphocytes % 31.3 %; Mean Corpuscular HGB Conc 32.4 g/dL (30-55); Mean Corpuscular Hemoglobin 31.9 pg (27-33); Mean Corpuscular Volume 98.7 fl (82-101); Mean Platelet Volume 9.7 fL (7.4-10.4); Monocytes # 0.4 10^3/uL (0.2-0.9); Monocytes % 6.5 %; Neutrophils # 3.63 10^3/uL (1.8-7.7); Neutrophils % 57.2 %; Nucleated Red Blood Cells % 0 %; Platelet Count 197 10^3/cmm (157-399); Red Blood Count 4.54 10^6/uL (3.85-5.65); Red Cell Distribution Width 12.4 % (12.1-15.1); White Blood Count 6.33 10^3/uL (3.29-11.43)
--- NOTE | 2024-04-10 08:39 | W.PM.OPSUD ---
Surgery/Procedure H&P Update DATE OF PROCEDURE: April 10, 2024 DATE H&P PERFORMED: 04/04/24 H&P UPDATE INFORMATION: I have reviewed H&P completed within last 30 days, I have examined patient prior to procedure and No changes to prior documentation PREOP DIAGNOSIS: Lumbar stenosis with neurogenic claudication PLANNED PROCEDURE: Operation Date: 04/10/24 09:10 Proposed Procedures p Spinal Fusion PSF(Not Applicable) - Hasmukh Russell DO s Lumbopelvic Fixation(Not Applicable) - DO yogesh Epperson Lumbar Spine Decompression Lumbar Decompression(Not Applicable) - Hasmukh Russell DO
[2024-04-10 08:41] LABS: Alanine Aminotransferase 23 U/L (0-41); Albumin Level 4.4 g/dL (3.5-5.2); Alkaline Phosphatase 81 U/L (40-130); Anion Gap 15.3 (5-19); Aspartate Amino Transferase 20 U/L (0-40); Blood Urea Nitrogen 20 mg/dL (8-23); Calcium 9.6 mg/dL (8.5-10.5); Carbon Dioxide 24 mmol/L (22-29); Chloride 103 mmol/L (98-107); Creatinine Clr Calc Pharmacy 96.5676; Globulin 2.7 g/dL (1.3-4.6); Glucose 104 mg/dL (65-115); Osmolality Calculated 289 mOsm/kg (285-295); Potassium 4.3 mmol/L (3.5-5.1); Sodium 138 mmol/L (136-145); Total Bilirubin 0.4 mg/dL (0.15-1.2); Total Protein 7.1 g/dL (6.6-8.7)
[2024-04-10] MEDS: ceFAZolin 2,000 mg SDV 2000 MG IVP ×3 (09:09→22:16)
[2024-04-10] MEDS: lidocaine-epi 1% 20 mL INJ INJECTION (10:13)
[2024-04-10] MEDS: vancomycin 1,000 MG SDV 1000 MG XX (10:13)
[2024-04-10] MEDS: heparin, porcine 1,000 unit/mL INJ 10 mL 10000 UNIT IRRIGATION (10:14)
--- NOTE | 2024-04-10 12:54 | XR_ITS ---
WS: [id number] Exam: XR lumbar spine 2-3V* [id number] Date/Time of Exam: 04/10/2024 12:54 PM Reason For Exam: OR PICS Intraoperative C-arm AP and lateral images of the lumbosacral spine are submitted. Images were obtain ed for intraoperative visualization purposes.
--- NOTE | 2024-04-10 13:25 | P.OP_ITS ---
Operative Report Date of procedure: April 10, 2024 Pre-op diagnosis: Lumbar stenosis with neurogenic claudication Post-op diagnosis: same Procedure done: 1. L3 to pelvis fusion 2. L3-S1 posterior spine instrumentation 3. Lumbopelvic instrumentation 4. Open SI joint fusion on the right 5. Open SI joint fusion on the left 6. Use of computer navigation stereotactic for spine 7. Bone marrow aspirate from right iliac crest 9. L3/4 laminectomy and partial facetectomies 10. L4/5 laminectomy with partial facetectomies 11. L5/S1 laminectomy with partial facetectomies 12. Use of allograft 13. Removal of deep hardware from spine Surgeon: Hasmukh Russell DO Estimated blood loss (mL): 300 Procedure: 1. L3 to pelvis fusion 2. L3-S1 posterior spine instrumentation 3. Lumbopelvic instrumentation 4. Open SI joint fusion on the right 5. Open SI joint fusion on the left 6. Use of computer navigation stereotactic for spine 7. Bone marrow aspirate from right iliac crest 9. L3/4 laminectomy and partial facetectomies 10. L4/5 laminectomy with partial facetectomies 11. L5/S1 laminectomy with partial facetectomies 12. Use of allograft 13. Removal of deep hardware from spine Patient brought to the operative suite after undergoing anesthesia was placed in the prone position. All areas impingement well-padded. Patient is prepped and draped in normal sterile fashion. Skin incisions made using the previous skin incision extending slightly above and below. The thoracolumbar fascia was split and subperiosteal dissection was made out to the transverse process of L3 to L5 bilaterally as well as the sacral ala bilaterally. Sacrum and SI joints were dissected out as well. Next attension was was brought to the bone marrow aspirate. This was done by using the Endosee cell bone marrow aspiration kit. The iliac crest was identified and through a separate incision through the fascia and the bone marrow aspiration kit was inserted into the right iliac crest. Bone marrow aspirate was taken 20 cc. This was mixed with the allograft. Next attention was brought to placing the fiducial for the C-arm. This is going to be used for the computer navigation. 2 pins were placed into the right iliac crest which were later moved to the end of the case. The fiducial was attached. C-arm was brought in and then spun around the patient. The information from serum was then later used after is loaded the computer for the placement of pedicle screws. Next attention was brought to placing the pedicle screws. This was done at L3 bilaterally L4 bilaterally, L5 bilaterally and S1 bilaterally. The computer navigated awl was inserted into the pedicle. Followed by the pedicle feeler. Followed by placement of the screws using the computer navigation. At all these levels. Next attention was placing the iliac screws. This was done using the computer navigated awl. This is placed through the ala across the SI joint into the iliac crest. Then followed by the pedicle feeler. Followed by computer navigated tap. 100 mm 9.5 millimeter pedicle screws were then placed into the iliac crest. This was done bilaterally. Next attention was brought to the open SI joint fusions. This was done by using the computer navigated awl crossing the SI joint. Through direct visualization as well. The pedicle feeler was used to make sure was crossed no breaches. The canal was then filled with bone graft. And then a computer navigated SI joint fusion screws placed across the SI joint. This process was done on both the right and the left side. Once all the screws were placed attention was then brought to doing the laminectomy at L3-4. Patient had previous laminectomies performed on the right side. At this point the spinous process was taken down at L3-4. High-speed bur was used to take down the laminectomy. The facet joints were also taken down using the high-speed bur burring completely out so that the L3 nerves were identified. The facet was taken down and the medial aspect of the facet up to the pedicle was taken down bilaterally of the L4 pedicle. Using Kerrison rongeur. Ligamentum flavum was taken down as far as the kidney there was scarring. However the dura was completely opened and felt to be adequately decompressed. The L3 nerves were traced around the L3 pedicle out where the foramen was in the L4 nerves were traced around the L4 pedicles. The spondylolisthesis identified disc material was removed as well to free up the disc. Laminectomy was performed at L4 at the L4-5 level. Limb was taken down with a high-speed bur medial aspect of facet joints were taken down the high-speed bur curved. Kerrison we reviewed used to remove the remaining bone. The ligament plate was taken down from L4-L5. The L4 nerve roots were traced out the L4-5 foramen and the L5 nerve was traced around the L5 pedicles bilaterally. The dura fluid up to the top there is significant stenosis at this level and significant thickening of the ligamentum flavum. Laminectomy was then performed L5-S1. Again the high-speed bur was used to take down the lamina of L5 the medial aspect of facet joints were taken down with a high-speed bur curved curette and Kerrisons were used to take the remaining bone down the ligament flavum was taken down from L5-S1. S1 nerve was traced around the S1 pedicle as the L5 nerve roots were traced out the L5-S1 foramen. Wounds were then irrigated. The sage was then attached from L3, L4, L5, S1 and i nto the iliac screw completing the lumbopelvic fixation. The screw caps were then torqued into position. This was done bilaterally. Next attention was brought to decorticating the transverse processes of L3 bilaterally L4 bilaterally L5 bilaterally and sacral ala bilaterally as well as the SI joints. Osteoamp bone graft was then packed into the gutters. And across the SI joint. Vancomycin powder was placed deep drain was placed and wound was closed in layered fashion with Vicryl and Monocryl. Sterile dressings were applied patient was transferred to the PACU in stable condition.
--- NOTE | 2024-04-10 14:00 | ANE.PACU2 ---
Inpatient post-anesthesia follow up: Airway intact: Yes Vital signs: Temperature 97.5 F Pulse Rate 77 Respiratory Rate 18 Blood Pressure 111/72 Pulse Oximetry 93 Oxygen Delivery Me thod Nasal Cannula Oxygen Flow Rate 2 Fraction of Inspir ed Oxygen Hydration adequate: Yes Nausea and vomiting: No Pain level: 1 Mental status: Baseline
[2024-04-10] MEDS: HYDROcodone-acetaminophen 5-325 mg Tablet PO ×2 (14:53→23:31)
[2024-04-10] MEDS: lactated ringers 1,000 ML 90 ML IV (16:19)
[2024-04-10] MEDS: morphine 4 mg/mL SDV 1 mL 2 MG IVP ×2 (18:15→22:16)
[2024-04-10] MEDS: ketorolac 30 mg/mL INJ IVP (18:17)
[2024-04-11] VITALS (7 sets, daily range): BP systolic 118–143; BP diastolic 56–73; PULSE 80–99; RESP 16–20; TEMP 36.6–37.5; O2SAT 90–94
[2024-04-11] MEDS: morphine 4 mg/mL SDV 1 mL 2 MG IVP (01:30)
[2024-04-11] MEDS: lactated ringers 1,000 ML 90 ML IV ×3 (03:28→16:13)
[2024-04-11] MEDS: ketorolac 30 mg/mL INJ IVP ×3 (03:28→20:06)
[2024-04-11 05:32] LABS: Basophils % 0.1 %; Eosinophils % 0.2 %; Hematocrit 33.9 % (37-53); Lymphocytes # 1.7 10^3/uL (0.8-4.8); Lymphocytes % 16.2 %; Mean Corpuscular HGB Conc 32.2 g/dL (30-55); Mean Corpuscular Hemoglobin 32.6 pg (27-33); Mean Corpuscular Volume 101.5 fl (82-101); Mean Platelet Volume 9.7 fL (7.4-10.4); Monocytes % 9.3 %; Neutrophils # 7.54 10^3/uL (1.8-7.7); Neutrophils % 73.7 %; Nucleated Red Blood Cells % 0 %; Platelet Count 193 10^3/cmm (157-399); Red Blood Count 3.34 10^6/uL (3.85-5.65); Red Cell Distribution Width 12.8 % (12.1-15.1); White Blood Count 10.23 10^3/uL (3.29-11.43)
[2024-04-11] MEDS: HYDROcodone-acetaminophen 5-325 mg Tablet PO ×2 (05:42→12:28)
[2024-04-11] MEDS: ceFAZolin 2,000 mg SDV 2000 MG IVP ×2 (05:44→12:29)
[2024-04-11] MEDS: docusate sodium 100 mg Capsule PO ×2 (08:55→16:14)
[2024-04-11] MEDS: donepezil 5 MG Tablet PO (08:55)
[2024-04-11] MEDS: tamsulosin 0.4 mg Capsule PO (08:55)
[2024-04-11] MEDS: atorvastatin 40 mg Tablet PO (08:56)
[2024-04-11] MEDS: cholecalciferol (vitamin D3) 1,000 unit Tablet 1000 UNIT PO (08:56)
[2024-04-11] MEDS: diclofenac 1% Topical Gel 100 gm 1 APPLIC TOPICAL ×4 (08:56→21:15)
--- NOTE | 2024-04-11 09:39 | P.PN_ITS ---
Subjective 2 Subjective: Patient is doing well for the most part this morning did have a lot of drainage out of his drain. Would like him 1 more day to decrease the risk of a hematoma. Vitals/I&O/Wt Last Vital Signs Temp 98.3 F 04/11/24 03:31 Pulse 86 04/11/24 08:30 Resp 16 04/11/24 08:30 BP 129/73 04/11/24 03:31 Pulse Ox 91 04/11/24 08:30 O2 Del Method Room Air 04/11/24 08:30 O2 Flow Rate 2 04/11/24 03:31 04/10/24 04/11/24 04/11/24 22:59 06:59 14:59 Intake Total 240 / 2140 1000 / 3140 240 / 240 Output Total 1190 / 1790 400 / 2190 90 / 90 Balance -950 / 350 600 / 950 150 / 150 Weight last 48 hrs Weight 241 lb 2 oz Weight 230 lb Physical Exam 2 Narrative: Alert and oriented x 3 Head is normocephalic atraumatic Respirations are intact No evidence of any rashes or infection 5/5 strength in bilateral upper and lowe r extremities Sensation intact in all extremities Deep tendon reflexes 2 out of 4 bilateral upper and lower extremities foot drop on the right Dressing clean dry intact Patient had over 400 out over overnight. Urinary Catheter Management: [place]: Cath Placed During This Visit: yes Reason for Continuing Indwelling Catheter: Perioperative Use in Selected Surgeries Urinary Catheter Date of Insertion: 04/10/24 Urinary Catheter Time of Insertion: 09:20 Data 04/11/24 05:05 04/10/24 08:05 A&P Assessment and plan (1) Status post lumbar spinal fusion: Postop day #1 L3 to pelvis fusion. Will check an H&H with the amount of drainage coming out of the drain. Attestations 2 Medical Necessity Statement*: Pain control and hematoma prevention Coding Level of Care Code Acute Code for Chg Fwd Diagnoses Status post lumbar spinal fusion Z98.1
[2024-04-11 12:05] LABS: Hematocrit 34.9 % (37-53)
--- NOTE | 2024-04-11 12:51 | PC.CHAP ---
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 [] Patient/Family/Request visit [] Outpatient visit [] Follow-up visit [] Physician referral [] Code/Alert [x] Routine visit [] Staff referral [] Actively dying [] Patient sleeping [] Family support [] [] Out of room [] Palliative care [] [] Receiving care in room [] Pre-surgical visit [] Trauma [] Long length of stay [] ICU visit [] Other: Relational/Emotional Strength [x] Patient feels connected with others/family/visitors/staff [] Distress [] Loneliness/isolation [] Abandonment Spirituality of Patient [x] Person of Lucía [] Attends Zoroastrianism of their Lucía [x] Believes in Prayer [] Reads Bible or Presybeterian materials [] There are Spiritual issues to be addressed Overnight Caregiver Interventions [x] Prayer [x] Active listening [] Non-anxious presence [x] Spiritual/emotional support [] Crisis/trauma care [] Spiritual counseling [] Bereavement support [] Provided bereavement packet [] Provided Bible/devotional materials [] Provided toy/stuffed animal, coloring book to patient or family member [] Provided Communion [] Anointing/[place] [] Salvation [x] Completed spiritual assessment [] Other: Impact on Illness or Injury [] Angry [] Fearful [] Anxious [] Often cries [] Exhaustion [] Unable to work [] Unable to attend islam [] Unable to walk/stand [] Unable to read [] Unable to drive [] Unable to eat/drink [] Unable to sleep [] Unable to be with family [] Patient intubated [] Other: Summary Time spent with patient 5 min
[2024-04-11] MEDS: magnesium hydroxide 30 mL UDC PO (23:41)
[2024-04-12] VITALS: BP 147/84; PULSE 83; RESP 18; TEMP 37.7; O2SAT 95
[2024-04-12 01:20] VITALS: RESP 20; O2SAT 2
[2024-04-12] MEDS: morphine 4 mg/mL SDV 1 mL 2 MG IVP (01:20)
[2024-04-12] MEDS: lactated ringers 1,000 ML 90 ML IV (03:47)
[2024-04-12 04:05] VITALS: BP 154/84; PULSE 91; RESP 19; TEMP 37.4; O2SAT 91
[2024-04-12] MEDS: HYDROcodone-acetaminophen 5-325 mg Tablet PO (05:46)
[2024-04-12 07:52] VITALS: BP 126/70; PULSE 83; RESP 16; TEMP 36.4; O2SAT 95
--- NOTE | 2024-04-12 08:11 | P.DS_ITS ---
Discharge Providers Date of Admission: 04/10/24 13:48 Date of Discharge: April 12, 2024 Attending Provider at Admission: Hasmukh Russell DO Attending Provider at Discharge: Hasmukh Russell DO Primary Care Provider: Sheila Cline MD Diagnoses at Discharge Discharge Diagnosis (1) Status post lumbar spinal fusion: Status: Acute Reason for Visit Reason for Visit: M48.062 Physical Exam Narrative: Doing well pain controlled. Urinary Catheter Management: [place]: Cath Placed During This Visit: yes, but has since been removed by the nurse Reason for Continuing Indwelling Catheter: Decision to DC Catheter Urinary Catheter Date of Insertion: 04/10/24 Urinary Catheter Time of Insertion: 09:20 Date Urinary Catheter Removed: 04/11/24 Time Urinary Catheter Discontinued: 11:13 Discharge Data Studies Completed and Pending Completed Studies During Hospitalization Category Date Time Status XR lumbar spine 2-3V* [id number] Routine Exams 04/10/24 12:54 Completed Laboratory Results WBC 10.23 10^3/uL (3.29-11.43) 04/11/24 05:05 RBC 3.34 10^6/uL (3.85-5.65) L 04/11/24 05:05 Hgb 10.80 g/dL (11.27-16.99) L 04/11/24 11:30 Hct 34.9 % (37-53) L 04/11/24 11:30 MCV 101.5 fl (82-101) H 04/11/24 05:05 MCH 32.6 pg (27-33) 04/11/24 05:05 MCHC 32.2 g/dL (30-55) 04/11/24 05:05 RDW 12.8 % (12.1-15.1) 04/11/24 05:05 Plt Count 193 10^3/cmm (157-399) 04/11/24 05:05 MPV 9.7 fL (7.4-10.4) 04/11/24 05:05 Neut % (Auto) 73.7 % 04/11/24 05:05 Lymph % (Auto) 16.2 % 04/11/24 05:05 [place] % (Auto) 9.3 % 04/11/24 05:05 Eos % (Auto) 0.2 % 04/11/24 05:05 Baso % (Auto) 0.1 % 04/11/24 05:05 Neut # (Auto) 7.54 10^3/uL (1.8-7.7) 04/11/24 05:05 Lymph # (Auto) 1.7 10^3/uL (0.8-4.8) 04/11/24 05:05 [place] # (Auto) 1.0 10^3/uL (0.2-0.9) H 04/11/24 05:05 Eos # (Auto) 0.0 10^3/uL (0.0-0.8) 04/11/24 05:05 Baso # (Auto) 0.0 10^3/uL (0.0-0.1) 04/11/24 05:05 Nucleated RBC % (auto) 0 % 04/11/24 05:05 Nucleated RBCs # 0.0 /100WBC 04/11/24 05:05 Sodium 138 mmol/L (136-145) 04/10/24 08:05 Potassium 4.3 mmol/L (3.5-5.1) 04/10/24 08:05 Chloride 103 mmol/L (98-107) 04/10/24 08:05 Carbon Dioxide 24 mmol/L (22-29) 04/10/24 08:05 Anion Gap 15.3 (5-19) 04/10/24 08:05 BUN 20 mg/dL (8-23) 04/10/24 08:05 Creatinine 0.6 mg/dL (0.7-1.2) L 04/10/24 08:05 GFR Calculation Not Reportable 04/10/24 08:05 Glucose 104 mg/dL (65-115) 04/10/24 08:05 Calculated Osmolality 289 mOsm/kg (285-295) 04/10/24 08:05 Calcium 9.6 mg/dL (8.5-10.5) 04/10/24 08:05 Total Bilirubin 0.4 mg/dL (0.15-1.2) 04/10/24 08:05 AST 20 U/L (0-40) 04/10/24 08:05 ALT 23 U/L (0-41) 04/10/24 08:05 Alkaline Phosphatase 81 U/L (40-130) 04/10/24 08:05 Total Protein 7.1 g/dL (6.6-8.7) 04/10/24 08:05 Albumin 4.4 g/dL (3.5-5.2) 04/10/24 08:05 Globulin 2.7 g/dL (1.3-4.6) 04/10/24 08:05 Blood Type O Positive 04/10/24 08:05 Rho(D) Type Rh positive 04/10/24 08:05 Antibody Screen Negative 04/10/24 08:05 Vitals Last Vital Signs Temp 97.6 F 04/12/24 07:52 Pulse 83 04/12/24 07:52 Resp 16 04/12/24 07:52 BP 126/70 04/12/24 07:52 Pulse Ox 95 04/12/24 07:52 O2 Del Method Nasal Cannula 04/12/24 07:52 O2 Flow Rate 2 04/12/24 04:05 Discharge Plan Discharge Patient Disposition: Home Condition: Stable Prescriptions: New hydrocodone-acetaminophen 5-325 mg tablet 1 - 2 tab PO .Q4-6H Qty: 40 0RF Continued atorvastatin 40 mg tablet 40 mg PO DAILY diclofenac sodium 1 % gel 2 g topical QID Rx Instructions: apply to single elbow, wrist or hand; for hand includes palm/fingers/back of hand aspirin 81 mg tablet,delayed release (DR/EC) 81 mg PO DAILY donepezil 5 mg tablet 5 mg PO DAILY Qty: 90 0RF Rx Instructions: has not started taken this rx yet celecoxib 200 mg capsule 200 mg PO BID PRN (Reason: pain) Qty: 60 3RF Centrum Silver Ultra Men's 300-600-300 mcg tablet 1 tab PO DAILY coenzyme [id number] 100-100 mg-unit capsule 1 cap PO DAILY cholecalciferol (vitamin D3) 25 mcg (1,000 unit) tablet 25 mcg PO DAILY (DME) AFO brace See Rx Instructions .Route .MEDSUPPLY Qty: 1 0RF Rx Instructions: As directed to [facility] acetaminophen 500 mg tablet 500 mg PO Q6H PRN (Reason: Pain) tamsulosin 0.4 mg capsule 0.4 mg PO DAILY Qty: 90 3RF (DME) Bone Growth Stimulator See Rx Instructions .Route .MEDSUPPLY Qty: 1 0RF Rx Instructions: As directed gabapentin 300 mg capsule 300 mg PO TID PRN (Reason: chronic pain) Discontinued tramadol 50 mg tablet 50 mg PO BID PRN (Reason: pain, moderate) 30 Days Qty: 60 5RF Discharge Orders: Discharge Order (Routine); Ordered 04/12/24 Ordered By: Hasmukh Russell Discharge Diet: Advance as tolerated Discharge Activity: Limit activity as instructed Patient Instructions: Acute Wound Care (DC), Opioid Safety, Post Anesthesia Care Activity Restrictions/Additional Instructions: Thank you for [facility] for your care! The following is a list of instructions, from your provider, to follow upon your d ischarge to ensure you have the optimal recovery from your recent injury orsurgery. Follow-up care is a bhatt part of your treatment and safety. Be sure to make and go to all appointments, and call your doctor if you are having problems. If you do not already have a follow-up appointment made, call Dr. Russell office in the next 1-3 days to make follow up appointment for 1 weeks at [phone]. It is also a good idea to know your test results and keep a list of the medicines you take. Medications will be prescribed for you at your provider's discretion. These medications are to be used as instructed; if they are taken more often that prescribed they will not be refilled early and in most cases will not be refilled at all. > When a refill is needed,you should contact maria l machuca 2-3 business days before your prescription runs out. Medications will NOT be refilled by senior treasury consultant providers after hours! > Many pain medications contain Tylenol (Acetaminophen). Do not consume more than 4,000 mg of Tylenol per day in total with any combination ofmedications. > Pain medications can cause constipation. Please use an over the counter stool softener as directed, while taking pain medications. Consulty our local pharmacist with questions or recommendations on stool softeners. If constipation persists, contact our office or your primary care provider. > While under our care,you are not to receive pain medications or other controlled substances from any other provider unless our office is notified and approves. Any attempts to do so will result in refusal to prescribe any further pain medications and possible dismissal from our practice. Keep dressing on until seen in clinic. ? Showering is permitted, however we ask that you do not take a bath, sit in a whirlpool / Jacuzzi, or go swimming for 1 month. For only the first 2 days after surgery, lt wilt be necessary for you to cover your wound/dressing with plastic and tape to keep it dry. ? Walking is essential for the healing process after surgery. We would like you to slowly advance your walking. This should be done on relatively flat clear ground (inside or out) or can be done on a treadmill. Remember this goal does not have to happen all at once, slowly increase your distance and duration. This can be broken into more more than one walk per day as tolerated. Patients who walk as directed after surgery rarely require Physical Therapy. In the unlikely event this issue arises your provider will direct hospital staff to make the appropriate arrangements. ? No lifting over 5 pounds {a gallon of milk) or bending/twisting until further notice. Each of these activities places an unnecessary amount of stress onto the body and can impede the delicate healing process. > Instead of bending at the waist, keep your back straight and bend at the knees. > Instead of twisting your torso, keep your back straight and turn your entire body with your feet. ? You may sleep in any position which makes you comfortable. Many patients find comfort sleeping in a reclining chair. It is not abnormal to have difficulty sleeping for the first several weeks following your surgery. We recommend trying Benadry! or Tylenol PM as directed to help with your sleeping difficulties. Both medications are over the counter and available withoutprescription. ? NO SMOKING!!! Smoking dramatically increases the probability of developing postoperative wound infections. ? Common complaints after lumbar and/or thoracic spine surgery include, but are not limited to: numbness and/or tingling in the legs, pain around the incision and surrounding tissues, muscle spasms, or stiffness of the middle to low back. Contact our office if these symptoms persist or if an acute change occurs. ? No driving for the first 3-5days, and not while taking narcotics until seen at your follow-up appointment and cleared. There are no restrictions for riding on short trips, however if you take a longer trip, arrangements should be made to make regular stops to get out of the vehicle and stretch . ? Swelling is an unfortunate event that will take place with any surgery and is the primary source of your postoperative discomfort. While walking and regular approved activities helps control inflammation, there are additional steps you can take to minimizeswelling. > Place ice over the surgical site and surrounding tissue for twenty minutes, followed by applying a low/medium heat (heating pad) for an additional twenty minutes every 1-2 hours as needed for painrelief. > You may use of over the counter anti-inflammatory medications (Ibuprofen, Motrin, Aleve, Advil, etc) as directed on the package label. These types of medicines wm significantly reduce the amount of discomfort you experience after surgery from swelling. It should be noted that if you have and allergy to any of these medications, or a history of ulcers or kidney disease you should consult you primary care provider prior to starting these medications. Discharge Attestations Time Spent in Discharge Care*: less than 30 min Quality Metrics Clinical Quality Measures [ No reported AMI, CVA or VTE this stay] Coding Level of Care Code Acute Code for Chg Fwd Diagnoses Status post lumbar spinal fusion Z98.1
[2024-04-12] MEDS: docusate sodium 100 mg Capsule PO (09:25)
[2024-04-12] MEDS: tamsulosin 0.4 mg Capsule PO (09:25)
[2024-04-12] MEDS: cholecalciferol (vitamin D3) 1,000 unit Tablet 1000 UNIT PO (09:25)
[2024-04-12] MEDS: atorvastatin 40 mg Tablet PO (09:26)
[2024-04-12] MEDS: donepezil 5 MG Tablet PO (09:26)
[2024-04-12 11:38] VITALS: BP 126/70; PULSE 83; RESP 16; TEMP 36.4; O2SAT 95
== END 2024-04-12 11:39 | disposition home or self-care (01) | DRG 448 ==
LOC: MEDSURG 18:15
PROVIDERS: Admitting Provider Orthopaedic Surgery; PCP Family Medicine; Visit Provider Orthopaedic Surgery
PROC: 0SG1071 Fusion of 2 or more Lumbar Vertebral Joints with Autologous Tissue Substitute, Posterior Approach, Posterior Column, Open Approach (ICD-10-PCS; principal; 2024-04-10 08:50)
PROC: 0SG1071 Fusion of 2 or more Lumbar Vertebral Joints with Autologous Tissue Substitute, Posterior Approach, Posterior Column, Open Approach (ICD-10-PCS; 2024-04-10 08:50)
PROC: 0SG1071 Fusion of 2 or more Lumbar Vertebral Joints with Autologous Tissue Substitute, Posterior Approach, Posterior Column, Open Approach (ICD-10-PCS; CPT 63005; 2024-04-10 08:50)
DX: M48.062 Spinal stenosis, lumbar region with neurogenic claudication (principal); F02.811 Dementia in other diseases classified elsewhere, unspecified severity, with agitation; I25.10 Atherosclerotic heart disease of native coronary artery without angina pectoris; G30.9 Alzheimer's disease, unspecified; I65.29 Occlusion and stenosis of unspecified carotid artery; G89.29 Other chronic pain; N40.1 Benign prostatic hyperplasia with lower urinary tract symptoms; E78.5 Hyperlipidemia, unspecified; I10 Essential (primary) hypertension; Z87.891 Personal history of nicotine dependence; Z79.82 Long term (current) use of aspirin
CPT/HCPCS: 36415; 51702; 72100; 76000; 80053; 85014; 85018; 85025; 86850; 86900; 94760; 97110; 97116; 97161; 97530; C1713; C1734; J0330; J0690; J1100; J1171; J1644; J1885; J2270; J2405; J2704; J3010; J3370; J3490; J7030; J7120; P9045

== ENCOUNTER → 2024-05-09 14:45 | Outpatient (BNVA) | payer MEDICARE, SELFPAY | PROVIDERS: PCP Family Medicine; Visit Provider Orthopaedic Surgery | DX: Z98.1 Arthrodesis status (principal) | CPT/HCPCS: 99024 ==

== ENCOUNTER → 2024-05-23 14:58 | Outpatient (BNVA) | payer MEDICARE, SELFPAY | PROVIDERS: PCP Family Medicine; Visit Provider Orthopaedic Surgery | DX: Z98.1 Arthrodesis status (principal) | CPT/HCPCS: 72100; 99024 ==

== ENCOUNTER → 2024-07-18 08:37 | Outpatient (BNVA) | payer MEDICARE, SELFPAY | PROVIDERS: PCP Family Medicine; Visit Provider Orthopaedic Surgery | DX: Z98.1 Arthrodesis status (principal) | CPT/HCPCS: 72100; 99024 ==

== ENCOUNTER → 2024-09-24 10:39 | Outpatient (BNVA) | payer MEDICARE, SELFPAY | PROVIDERS: PCP Family Medicine; Visit Provider Family Medicine | DX: I10 Essential (primary) hypertension (principal); I25.10 Atherosclerotic heart disease of native coronary artery without angina pectoris; I65.23 Occlusion and stenosis of bilateral carotid arteries; E78.5 Hyperlipidemia, unspecified; R73.03 Prediabetes; E66.9 Obesity, unspecified; R41.3 Other amnesia; R39.15 Urgency of urination | CPT/HCPCS: 80061; 83036; 85025; 87086 ==

== ENCOUNTER → 2024-10-16 13:44 | Outpatient (BNVA) | payer MEDICARE, SELFPAY | PROVIDERS: Family Provider Family Medicine; PCP Family Medicine; Visit Provider Psychiatry & Neurology Neurology | DX: G30.9 Alzheimer's disease, unspecified (principal); R41.3 Other amnesia; F02.811 Dementia in other diseases classified elsewhere, unspecified severity, with agitation | CPT/HCPCS: 36415; 82233; 82234; 83520; 84439; 84443; 85025; 96116; 99213 ==

== ENCOUNTER → 2024-10-17 08:41 | Outpatient (BNVA) | payer MEDICARE, SELFPAY | PROVIDERS: Family Provider Family Medicine; PCP Family Medicine; Visit Provider Orthopaedic Surgery | DX: Z98.1 Arthrodesis status (principal) | CPT/HCPCS: 72100; 99213 ==

== ENCOUNTER 2024-10-25 07:37 | Outpatient (CLI) | payer MEDICARE, SELFPAY ==
--- NOTE | 2024-10-25 08:00 | MR_ITS ---
WS: [id number] MRI BRAIN WITH AND WITHOUT CONTRAST HISTORY: G30.9 - Alzheimer's disease, unspecified COMPARISON: 05/19/2023 TECHNIQUE: Multiplanar imaging performed through the brain with MultiHance 20 ml's IV. No acute infarcts are seen. Guardado-white matter differentiation is well preserved. Mild cerebral and cerebellar atrophy and mild small vessel disease. No significant progression since the prior examination. No large territory infarct. Mild hippocampal atrophy. No susceptibility artifacts or prior lacunar infarcts. Mild enlargement of the ventricles and extra-axial spaces on the basis of atrophy. Clivus and pituitary gland are normal. Visualized posterior fossa and brainstem are also normal. Postcontrast images are negative for masses or vascular malformations. Dural venous sinuses are normal. Paranasal sinuses: Well aerated with no significant disease. Mastoid air cells: Small amount of fluid in the LEFT mastoid air cells. Calvarium and scalp: Normal. MR/MR head wo/w con [id number] IMPRESSION: 1. No acute infarct. No enhancing masses or vascular malformations. 2. Mild cerebral and cerebellar atrophy and small vessel disease. 3. Mild stable hippocampal atrophy. 4. Similar appearance of the brain as compared to 05/19/2023.
[2024-10-25] MEDS: gadobenate dimeglumine 20 mL vial IV (08:37)
== END 2024-10-25 07:38 | disposition home or self-care (01) ==
LOC: RAD 07:37
PROVIDERS: PCP Family Medicine; Visit Provider Psychiatry & Neurology Neurology
DX: R41.3 Other amnesia (principal); I67.89 Other cerebrovascular disease; G31.89 Other specified degenerative diseases of nervous system
CPT/HCPCS: 70553

== ENCOUNTER → 2024-12-23 10:26 | Outpatient (BNVA) | payer MEDICARE, SELFPAY | PROVIDERS: PCP Family Medicine; Referring Provider Family Medicine; Visit Provider Nurse Practitioner | DX: G30.9 Alzheimer's disease, unspecified (principal); F02.811 Dementia in other diseases classified elsewhere, unspecified severity, with agitation | CPT/HCPCS: 96116; 99213 ==

== ENCOUNTER → 2025-02-10 14:13 | Outpatient (BNVA) | payer MEDICARE, SELFPAY | PROVIDERS: PCP Family Medicine; Referring Provider Family Medicine; Visit Provider Specialist | DX: G30.9 Alzheimer's disease, unspecified (principal); F02.80 Dementia in other diseases classified elsewhere, unspecified severity, without behavioral disturbance, psychotic disturbance, mood disturbance, and anxiety | CPT/HCPCS: 99215 ==